=== PATIENT | male | born 1960 | race Caucasian/White ===

== ENCOUNTER 2016-08-31 12:35 | Emergency (ER) ==
[2016-08-31 12:56] VITALS: BP 109/69
[2016-08-31] MEDS ORDERED: XYLOCAINE 2% VISCOUS MT ONE (13:19)
[2016-08-31] MEDS ORDERED: ZOFRAN PO ONE (13:19)
[2016-08-31] MEDS ORDERED: MARCAINE 0.5% PF INJ ONE (13:19)
[2016-08-31] MEDS ORDERED: NORCO-7.5 PO ONE (13:19)
[2016-08-31] MEDS ORDERED: TYLENOL LIQUID PO ONE (13:19)
[2016-08-31] MEDS ORDERED: XYLOCAINE-MPF 1% INJ ONE (13:19)
[2016-08-31] MEDS ORDERED: BICILLIN L-A IM ONE (13:20)
--- NOTE | 2016-08-31 13:27 | PROVIDER DOCUMENTATION ---
HPI-EENT General - General Chief Complaint: Toothache Stated Complaint: TOOTHACHE Time Seen by Provider: 08/31/16 12:59 Source: patient Allergies/Adverse Reactions: Patient Allergies Allergy/AdvReac Type Severity Reaction Status Date / Time No Known Allergies Allergy Verified 08/31/16 13:09 Home Medications: Bisoprolol Fumarate/Hctz [Ziac 10-6.25 mg Tablet] 1 each PO DAILY 08/31/16 Lisinopril 40 mg PO DAILY 08/31/16 Prednisone 5 mg PO DAILY 08/31/16 - History of Present Illness-EENT General Nature of Presenting Problem: 55 y/o WM c/o R lower jaw pain, swelling x 1 day. Pt states tooth fracture about 2-3 weeks ago and now has swelling and pain at the tooth. States tried to get into see a dentist today, but couldn't find one that was open or could see him today. Denies any other sxs. Review of Systems - Adult - REVIEW OF SYSTEMS - ADULT Constitutional: reports: no symptoms reported. denies: chills, fever Eyes: reports: no symptoms reported. denies: blurred vision, double vision Ears, Nose, Mouth & Throat: reports: see HPI, mouth/dental pain. denies: ear pain, nose pain Cardiovascular: reports: no symptoms reported. denies: chest pain, palpitations Respiratory: reports: no symptoms reported. denies: dyspnea on exertion, shortness of breath Gastrointestinal: reports: no symptoms reported. denies: abdominal pain, nausea , vomiting Genitourinary: reports: no symptoms reported. denies: dysuria, frequency Musculoskeletal: reports: no symptoms reported. denies: joint pain, joint swelling Integumentary: reports: no symptoms reported. denies: nail changes, rash Neurological: reports: no symptoms reported. denies: numbness, paresthesia Psychiatric: reports: no symptoms reported Endocrine: reports: no symptoms reported. denies: cold intolerance, heat intolerance Hematologic/Lymphatic: reports: no symptoms reported. denies: easy bruising, prolonged bleeding Allergic/Immunologic: reports: no symptoms reported All Other Systems: Reviewed and Negative Past History - Adult - PAST MEDICAL HISTORY-ADULT Review of Records: reports: Nursing Assessment Review, Medications Reviewed Physical Exam- EENT - Physical Exam EENT Initial Vital Signs Reviewed: Yes General Appearance: alert, mild distress Eye Exam: bilateral eye: normal inspection Ear Exam: bilateral ear: auricle normal Eyes,Nose,Lips,Neck: 1 - swelling Nasal Exam: normal inspection Throat Exam: normal mouth inspection, dental tenderness. negative: tonsillar exudate, tonsillar swelling Mouth,Throat: 1 - tooth fx 2 - swelling, induration, redness Neck: supple, normal inspection, lymphadenopathy (mild, cervical) Respiratory: no respiratory distress Extremity: normal gait Integumentary: normal color, normal turgor, warm/dry Neurologic: negative: aphasia Psych/Mental Status: AL, normal mood/affect, normal thought content, normal thought process, oriented x 3 Progress - PLAN OF CARE/RESULTS Progress/Plan/Lab Results: Orders Category Date Time Status Acetaminophen Liquid [Tylenol Liquid] Med 08/31/16 13:19 Discontinued 650 mg PO NOW ONE Bupivacaine Pf 0.5% [Marcaine 0.5% Pf] Med 08/31/16 13:19 Discontinued 10 ml INJ NOW ONE Hydrocodone/APAP 7.5 mg/325 mg [[place]-7.5] Med 08/31/16 13:19 Discontinued 1 each PO NOW ONE Lidocaine 1% Pf [Xylocaine-Mpf 1%] Med 08/31/16 13:19 Discontinued 5 ml INJ NOW ONE Lidocaine 2% Viscous [Xylocaine 2% Viscous] Med 08/31/16 13:19 Discontinued 15 ml MT NOW ONE Ondansetron [Zofran] Med 08/31/16 13:19 Discontinued 4 mg PO NOW ONE Penicillin G Benzathine [Bicillin l-A] Med 08/31/16 13:20 Discontinued 1,200,000 unit IM NOW ONE Vital Signs Temp Pulse Resp BP Pulse Ox 08/31/16 12:54 98.6 F 109 H 18 109/69 100 No Known Allergies Allergy (Verified 08/31/16 13:09) Bisoprolol Fumarate/Hctz [Ziac 10-6.25 mg Tablet] 1 each PO DAILY 08/31/16 Clindamycin [Cleocin] 150 mg PO Q6HR #30 capsule 08/31/16 Lisinopril 40 mg PO DAILY 08/31/16 Prednisone 5 mg PO DAILY 08/31/16 Discussed f/u with dentist for further management. Procedures - ENT PROCEDURES Nerve Block: Mandibular, Dental Anesthetic: 0.5%, 1%, Lidocaine w/ Epinephrine, Bupivicaine/Marcaine Volume of Anesthetic (ml's): 6 Procedure Comment: Pt tolerated well Departure - Departure Time of Disposition Order: 13:21 DIAGNOSIS: Dental abscess Disposition: HOME 01 Certified Medical Emergency: Emergent Condition: Stable Additional Instructions: Take medications as directed. Follow up with dentist for further management. Return if symptoms get worse. ED Follow Up Instructions: You have been treated by a care provider in the Emergency Department. These instructions are being provided to you so you can have an understanding of how to care for yourself upon discharge. Upon discharge from the Emergency Department, you are responsible for making arrangements for follow-up care by a physician of your choice. Take all prescribed medications as directed. Return to the Emergency Department immediately for any new or worsening symptoms. You may call the Physician Referral phone number at [phone] to obtain a list of Physicians who are taking new patients. Prescriptions: Clindamycin [Cleocin] 150 mg PO Q6HR #30 capsule Referrals: Elva Moreira [Primary Care Provider] - Forms: Return to School/Parent Work Instructions: Dental Abscess Attestation - Physician/ Mid-level Attestation Patient care was provided by Mid-level provider (VENEER STOCK LAYER/PA):: Yes Mid-level provider:: Angela Byrd Mid-level documentation review:: The Mid-level provider documentation, treatment plan and medical decision making was reviewed by the physician who agrees with all treatment and medical decision making by the MLP.
== END 2016-08-31 13:53 | disposition home or self-care (01) ==
LOC: ED 12:35
DX: K04.7 Periapical abscess without sinus (principal); S02.5XXA Fracture of tooth (traumatic), initial encounter for closed fracture; R68.84 Jaw pain; R22.0 Localized swelling, mass and lump, head; Z79.899 Other long term (current) drug therapy
CPT/HCPCS: 96372; J0561; S0020

== ENCOUNTER 2018-12-16 20:24 | Inpatient (IN) ==
[2018-12-16] MEDS ORDERED: NS 1,000 ML IV ONE ×2 (20:56→23:41)
[2018-12-16] MEDS ORDERED: MORPHINE IV ONE (21:07)
[2018-12-16 21:31] LABS: BE -1.8 mmoll (-3.0-3.0); BLOOD TYPE ARTERIAL; HCO3-(ACT) 23.3 mmoll (20.0-26.0); METHB 1.2 % (0.0-1.5); O2(CT) 14.8 mL/dL (15.0-23.0); PCO2(98.6) 25 mmHg (35-45); PO2(98.6) 53 mmHg (60-100); SAMPLE BLOOD; SAO2 93.5 % (95.0-100.0); THB 11.8 g/dL (11.5-17.4); pH(98.6) 7.51 (7.35-7.45)
[2018-12-16 21:33] LABS: ALLEN TEST NO; MODALITY ROOM AIR; O2HB 89.3 % (95.0-99.0)
[2018-12-16 21:57] LABS: INR 1.14; PROTIME 15.2 Seconds (11.0-16.0)
[2018-12-16 21:58] LABS: PTT 43.8 Seconds (22.3-41.8)
--- NOTE | 2018-12-16 22:01 | EKG Report ---
Test Performed on : 12/16/2018 9:45:03 PM Test Reason : cp Blood Pressure : / mmHG Vent. Rate : 134 BPM Atrial Rate : 134 BPM P-R Int : 124 ms QRS Dur : 074 ms QT Int : 308 ms P-R-T Axes : 031 001 032 degrees QTc Int : 459 ms Sinus tachycardia. Otherwise normal ECG When compared with ECG of 12-JAN-2008 20:57, Questionable change in QRS axis Unconfirmed Result
[2018-12-16 22:04] LABS: AGAP 19; ALBUMIN 2.9 g/dL (3.5-5.0); ALKALINE PHOSPHATASE 106 U/L (32-122); BUN 31 mg/dL (8-22); CALCIUM 9.7 mg/dL (8.8-10.2); CHLORIDE 102 mmol/L (98-107); CK PROFILE 46 U/L (24-204); COSMO 288; CREATININE 1.2 mg/dL (0.7-1.2); ESTIMATED GFR > 60; GLUCOSE 142 mg/dL (70-104); GOT 72 U/L (10-34); GPT 45 U/L (10-44); POTASSIUM 4.6 mmol/L (3.5-5.1); SODIUM 140 mmol/L (136-145); TCO2 19 mmol/L (25-35); TOTAL PROTEIN 6.3 g/dL (6.3-8.3); UR AMPHETAMINES QUAL NONE DETECTED (NONE DETECT); UR BARBITUATES QUAL NONE DETECTED (NONE DETECT); UR BENZODIAZEPIN QUAL NONE DETECTED (NONE DETECT); UR CANNABINOIDS QUAL NONE DETECTED (NONE DETECT); UR COCAINE QUAL NONE DETECTED (NONE DETECT); UR METHADONE QUAL NONE DETECTED (NONE DETECT); UR METHAMPHETAMINE QUAL NONE DETECTED (NONE DETECT); UR OPIATES QUAL PRESUMPTIVE POSITIVE (NONE DETECT); UR OXYCODONE QUAL NONE DETECTED (NONE DETECT); UR PCP QUAL NONE DETECTED (NONE DETECT); UR PROPOXYPHENE QUAL NONE DETECTED (NONE DETECT); UR TCA QUAL PRESUMPTIVE POSITIVE (NONE DETECT)
[2018-12-16 22:06] LABS: URINE SOURCE VOIDED
[2018-12-16 22:08] LABS: BILIRUBIN URINE NEGATIVE (NEGATIVE); BLOOD URINE 1+ (NEGATIVE); CLARITY CLEAR (CLEAR); COLOR AMBER; GLUCOSE URINE NEGATIVE (NEGATIVE); KETONE URINE TRACE mg/dL (NEGATIVE)
--- NOTE | 2018-12-16 22:08 | PROVIDER DOCUMENTATION ---
HPI-General Adult - General Chief Complaint: Generalized Pain Stated Complaint: Gout all over body Time Seen by Provider: 12/16/18 20:44 Source: patient, family Allergies/Adverse Reactions: Patient Allergies Allergy/AdvReac Type Severity Reaction Status Date / Time No Known Allergies Allergy Verified 12/08/16 13:14 Home Medications: Home Medication List Medication Instructions Recorded Confirmed Last Taken Type Folic Acid 1 mg PO DAILY 12/08/16 12/16/18 12/08/16 History Alendronate [Fosamax] 70 mg PO DIRECTED 12/16/18 12/16/18 Unknown History Amitriptyline [Elavil] 75 mg PO DAILY 12/16/18 12/16/18 Unknown History Aspirin [Aspir-Low] 81 mg PO DAILY 12/16/18 12/16/18 Unknown History Bisoprolol/Hctz [Ziac 10/6.25 mg] 1 tab PO DAILY 12/16/18 12/16/18 Unknown History Calcium Carbonate/Vitamin D3 1 cap PO BID 12/16/18 12/16/18 Unknown History [Calcium 1,000 + D3 Caplet] Fenofibrate 160 mg PO DAILY 12/16/18 12/16/18 Unknown History Folic Acid 1 mg PO DAILY 12/16/18 12/16/18 Unknown History Hydrocodone/Acetaminophen [[place] 1 tab PO TID 12/16/18 12/16/18 Unknown History 10-325 Tablet] Infliximab [Remicade] 100 mg IV DIRECTED 12/16/18 12/16/18 Unknown History Lisinopril 40 mg PO DAILY 12/16/18 12/16/18 Unknown History Metformin [Glucophage] 1,000 mg PO DAILY 12/16/18 12/16/18 Unknown History Methotrexate Sodium [Methotrexate] 15 mg DIRECTED 12/16/18 12/16/18 Unknown History Prednisone 5 mg PO 4XDAY 12/16/18 12/16/18 Unknown History Pregabalin [Lyrica] 75 mg PO TID 12/16/18 12/16/18 Unknown History - History of Present Illness -Gen Adult Nature of Presenting Problems: reports that he has been in generalized pain for a few days now. and bed bound for a couple days which he could not move both hands and feet due to his pain. he says that he had a similar pain and went to [facility] a month ago and dx with gouty attack. enroute he was given fentanyl but not much improving of his pain. denied cp, sob. Review of Systems - Adult - REVIEW OF SYSTEMS - ADULT Constitutional: reports: no symptoms reported Eyes: reports: no symptoms reported Ears, Nose, Mouth & Throat: reports: no symptoms reported Cardiovascular: reports: no symptoms reported Respiratory: reports: no symptoms reported Gastrointestinal: reports: no symptoms reported Genitourinary: reports: no symptoms reported Musculoskeletal: reports: no symptoms reported Integumentary: reports: no symptoms reported Neurological: reports: no symptoms reported Psychiatric: reports: no symptoms reported Endocrine: reports: no symptoms reported Hematologic/Lymphatic: reports: no symptoms reported Allergic/Immunologic: reports: no symptoms reported All Other Systems: Reviewed and Negative Past History - Adult - PAST MEDICAL HISTORY-ADULT Review of Records: reports: Old Records Reviewed, Nursing Assessment Review, Medications Reviewed, Social history reviewed & non-contributory. Major Childhood Illnesses: reports: denies history Cardiovascular: reports: HTN, hyperlipidemia Respiratory: reports: denies history Gastrointestinal: reports: GERD Obstetrical/Gynecological: reports: denies history Genitourinary: reports: denies history Musculoskeletal: reports: arthritis (rheumatoid), chronic pain Neurological: reports: denies history Endocrine/Immune: reports: denies history Other Conditions: reports: denies history - PRIOR SURGERIES/PROCEDURES Surgical/Procedure History: reports: reviewed, not pertinent - IMMUNIZATION STATUS Childhood Immunizations: See Nurse Assessment Flu Vaccine: See Nurse Assessment - FAMILY HISTORY Family History: reviewed, not pertinent - SOCIAL HISTORY Smoking: denies Substance Use: none/never Alcohol Use Frequency: never Living Situation: family Physical Exam-General - PHYSICAL EXAM-ADULT Initial Vital Signs Reviewed: Yes - CONSTITUTIONAL General Appearance: alert, other (not able to move and follow up command. hyperv entilating.) - EYES Eyes: other (eyes discharge with yellow) - HEAD, EARS, NOSE, MOUTH & THROAT HENMT: normocephalic/atraumatic, other (move head) - NECK Neck: non-tender, full range of motion. negative: C-spine tenderness - RESPIRATORY Respiratory: chest non-tender, lungs clear, normal breath sounds - CARDIOVASCULAR Cardiovascular: normal peripheral pulses, tachycardia - GASTROINTESTINAL (ABDOMEN) Abdominal Exam: normal bowel sounds, non tender, soft - MUSCULOSKELETAL Extremity: other (distall motor intact (wiggle toes)) - SKIN Integumentary: warm (and sweating) - NEUROLOGIC Neurologic: grossly normal, no motor/sensory deficits - PSYCHIATRIC Psych/Mental Status: normal thought content, normal thought process, oriented x 3 Progress - PLAN OF CARE/RESULTS Progress/Plan/Lab Results: Vital Signs - 8 hr 12/16/18 20:25 Temperature 97.2 F L Pulse Rate 137 H Respiratory Rate 20 Blood Pressure 127/74 O2 Sat by Pulse Oximetry 98 Laboratory Results - last 24 hr 12/16/18 12/16/18 12/16/18 21:17 21:23 21:26 PT INR PTT (Actin FS) Specimen Type ARTERIAL Sample Site R BRACHIAL pH 7.51 H pCO2 25 L pO2 53 L HCO3 23.3 Base Excess -1.8 Oxyhemoglobin 89.3 L* ABG O2 Sat (Calculated) 14.8 L ABG O2 Saturation 93.5 L ABG Carboxyhemoglobin 3.20 H ABG Methemoglobin 1.2 [place] Test NO A-a O2 Difference 65.0 Total Hemoglobin 11.8 Lactate 1.70 Blood Gas Modality ROOM AIR FiO2 % 21.0 Sodium 140 Potassium 4.6 Chloride 102 Carbon Dioxide 19 L Anion Gap 19 BUN 31 H Creatinine 1.2 Estimated GFR/1.73 m2 > 60 BUN/Creatinine Ratio 26 Glucose 142 H POC Glucose 157 H Calculated Osmolality 288 Calcium 9.7 Total Bilirubin 0.60 AST 72 H ALT 45 H Alkaline Phosphatase 106 Creatine Kinase 46 Troponin T Total Protein 6.3 Albumin 2.9 L Globulin 3.0 Albumin/Globulin Ratio 1.0 Plasma Lactate Urine Source Urine Color Urine Turbidity Urine pH Ur Specific [place] Urine Protein Ur Glucose (Stick) Ur Ketones (Stick) Urine Blood Urine Nitrite Urine Bilirubin Urobilinogen Dipstick Urine Leukocytes Urine WBC (Auto) Urine RBC (Auto) U Epithel Cells (Auto) Urine Bacteria (Auto) Urine Opiates Screen Ur Oxycodone Screen Urine Methadone Screen U Propoxyphene Qual Ur Barbituates Screen Ur Tricyclics Screen Ur Phencyclidine Scrn Ur Amphetamines Screen U Methamphetamines Scrn U Benzodiazepines Scrn Urine Cocaine Screen U Cannabinoids Screen 12/16/18 12/16/18 12/16/18 21:26 21:26 21:26 PT 15.2 INR 1.14 PTT (Actin FS) 43.8 H Specimen Type Sample Site pH pCO2 pO2 HCO3 Base Excess Oxyhemoglobin ABG O2 Sat (Calculated) ABG O2 Saturation ABG Carboxyhemoglobin ABG Methemoglobin [place] Test A-a O2 Difference Total Hemoglobin Lactate Blood Gas Modality FiO2 % Sodium Potassium Chloride Carbon Dioxide Anion Gap BUN Creatinine Estimated GFR/1.73 m2 BUN/Creatinine Ratio Glucose POC Glucose Calculated Osmolality Calcium Total Bilirubin AST ALT Alkaline Phosphatase Creatine Kinase Troponin T < 0.010 Total Protein Albumin Globulin Albumin/Globulin Ratio Plasma Lactate 1.9 Urine Source Urine Color Urine Turbidity Urine pH Ur Specific [place] Urine Protein Ur Glucose (Stick) Ur Ketones (Stick) Urine Blood Urine Nitrite Urine Bilirubin Urobilinogen Dipstick Urine Leukocytes Urine WBC (Auto) Urine RBC (Auto) U Epithel Cells (Auto) Urine Bacteria (Auto) Urine Opiates Screen Ur Oxycodone Screen Urine Methadone Screen U Propoxyphene Qual Ur Barbituates Screen Ur Tricyclics Screen Ur Phencyclidine Scrn Ur Amphetamines Screen U Methamphetamines Scrn U Benzodiazepines Scrn Urine Cocaine Screen U Cannabinoids Screen 12/16/18 12/16/18 21:26 21:26 PT INR PTT (Actin FS) Specimen Type Sample Site pH pCO2 pO2 HCO3 Base Excess Oxyhemoglobin ABG O2 Sat (Calculated) ABG O2 Saturation ABG Carboxyhemoglobin ABG Methemoglobin [place] Test A-a O2 Difference Total Hemoglobin Lactate Blood Gas Modality FiO2 % Sodium Potassium Chloride Carbon Dioxide Anion Gap BUN Creatinine Estimated GFR/1.73 m2 BUN/Creatinine Ratio Glucose POC Glucose Calculated Osmolality Calcium Total Bilirubin AST ALT Alkaline Phosphatase Creatine Kinase Troponin T Total Protein Albumin Globulin Albumin/Globulin Ratio Plasma Lactate Urine Source Cancelled Urine Color Cancelled Urine Turbidity Cancelled Urine pH Cancelled Ur Specific [place] Cancelled Urine Protein Cancelled Ur Glucose (Stick) Cancelled Ur Ketones (Stick) Cancelled Urine Blood Cancelled Urine Nitrite Cancelled Urine Bilirubin Cancelled Urobilinogen Dipstick Cancelled Urine Leukocytes Cancelled Urine WBC (Auto) Cancelled Urine RBC (Auto) Cancelled U Epithel Cells (Auto) Cancelled Urine Bacteria (Auto) Cancelled Urine Opiates Screen PRESUMPTIVE POSITIVE A Ur Oxycodone Screen NONE DETECTED Urine Methadone Screen NONE DETECTED U Propoxyphene Qual NONE DETECTED Ur Barbituates Screen NONE DETECTED Ur Tricyclics Screen PRESUMPTIVE POSITIVE A Ur Phencyclidine Scrn NONE DETECTED Ur Amphetamines Screen NONE DETECTED U Methamphetamines Scrn NONE DETECTED U Benzodiazepines Scrn NONE DETECTED Urine Cocaine Screen NONE DETECTED U Cannabinoids Screen NONE DETECTED Orders Category Date Time Status Cardiac Monitoring DIRECTED Care 12/16/18 20:52 Active Finger Stick Blood Sugar (ED) DIRECTED Care 12/16/18 20:52 Active Oxygen Therapy- ED Nursing DIRECTED Care 12/16/18 20:52 Active Saline Loc NOW Care 12/16/18 20:52 Active HAND COMPLETE LEFT [RAD] Stat Exams 12/16/18 20:52 Ordered HAND COMPLETE RIGHT [RAD] Stat Exams 12/16/18 20:52 Ordered ABG [RESP] Routine Lab 12/16/18 21:17 Completed BLOOD CULTURE [BLDCUL] Stat Lab 12/16/18 21:30 Ordered CBC WITH ELECTRONIC DIFF [HEME] Stat Lab 12/16/18 21:26 Results CK PROFILE [SP CHEM] Stat Lab 12/16/18 21:26 Completed COMPREHENSIVE METABOLIC PANEL [CHEM] Stat Lab 12/16/18 21:[address] Stat Lab 12/16/18 21:45 Received Ketone [ACETONE SERUM] [CHEM] Stat Lab 12/16/18 22:05 Ordered LACTATE, PLASMA [CHEM] Stat Lab 12/16/18 21:26 Completed PROTIME WITH INR [COAG] Stat Lab 12/16/18 21:26 Completed PTT [COAG] Stat Lab 12/16/18 21:26 Completed TROPONIN T Stat Lab 12/16/18 21:[address] [URINALYSIS] Stat Lab 12/16/18 21:26 Results URINE DRUG SCREEN PL Stat Lab 12/16/18 21:26 Completed 0.9% Sodium Chloride Inj [Ns] 1,000 ml Med 12/16/18 20:56 Discontinued IV 999 mls/hr Morphine Med 12/16/18 21:07 Discontinued 4 mg IV NOW ONE Altered Mental Status Stat Oth 12/16/18 20:52 Ordered EKG [EKG] Stat Ther 12/16/18 20:52 Draft Result Diagrams: 12/16/18 21:26 12/16/18 21:26 - EKG 1 Time of EKG reading by physician:: 21:45 EKG Read and Signed by:: Ivana Sarabia EKG Interpretation (*Must complete 3 of following elements*): Abnormal Rate: 134 Rhythm: ST [place]: normal QRS: normal [place] Interval: normal ST Wave: normal - CONSULTS/PCP/HOSPITALIST Notification #1 *Consult/PCP/Hospitalist*: dr. Casillas Departure - Departure Date of Disposition Decision: 12/16/18 Time of Disposition Decision: 23:42 DIAGNOSIS: Sepsis, Gout attack Disposition: ADMITTED INPATIENT 09 Certified Medical Emergency: Emergent Condition: Stable Referrals and Follow-Ups: Isaias Godfrey [Primary Care Provider] - - Critical Care Note This patient required my direct & personal management of CC.: No Attestation - Physician/ MARINO Attestation The physician spent face to face time with patient:: Yes Advanced Practice Provider documentation review:: Supervising physician onsite and consulted in the evaluation and care of this patient. The physician did have a face to face encounter with the patient.
[2018-12-16 22:09] LABS: LEUKOCYTES URINE 1+ (NEGATIVE); NITRITE URINE POSITIVE (NEGATIVE); PROTEIN URINE 1+(30 mg/dL) mg/dL (NEGATIVE); UROBILINOGEN URINE 1 mg/dL
[2018-12-16 22:10] LABS: URINE EPITHELIAL CELLS <10 /HPF (<10); URINE RBC <10 /HPF (<10)
[2018-12-16 22:11] LABS: BASO# 0.04 X1000 (0.0-0.2); BASO% 0.2 % (0.0-0.8); EOS# 0.08 X1000 (0.0-0.7); EOS% 0.4 % (0.0-10.0); HEMOGLOBIN 11.3 g/dL (14.0-18.0); IMM GRAN% 0.5 % (0.0-0.5); LYMPH# 2.29 X1000 (1.2-3.4); LYMPH% 10.9 % (20.5-51.1); MCH 30.2 PG (27-31); MCHC 32.3 g/dL (33-37); MCV 93.6 FL (81-99); MONO# 1.79 X1000 (0.11-0.59); MONO% 8.5 % (1.7-9.3); MPV 10.2 FL (7.4-10.4); NEUT# 16.74 X1000 (1.4-6.5); NEUT% 79.5 % (42.2-75.2); PLT 595 X1000 (130-400); RBC 3.74 XMIL (4.7-6.1); RDW 15.4 % (11.5-14.5); URINE BACTERIA 3+ /HFP; URINE CAST GRANULAR PRESENT /LPF; URINE CRYSTAL NONE SEEN /HPF; URINE YEAST NONE SEEN /HPF; WBC 21.04 X1000 (4.8-10.8)
[2018-12-16 22:23] LABS: BANDS 1 % (0-1); LYMPHS 10 % (21-51); MONO 5 % (1-9); SEGS 84 % (42-75)
[2018-12-16 22:26] LABS: INFLUENZA A NEGATIVE (NEGATIVE); INFLUENZA B NEGATIVE (NEGATIVE)
[2018-12-16] MEDS ORDERED: VANCOMYCIN 1 GM/NS 1 GM/250 ML IVPB IV ONE (22:57)
[2018-12-16] MEDS ORDERED: DECADRON IV ONE (23:11)
[2018-12-16] MEDS: NS 1,000 ML IV SCH (23:40)
[2018-12-16] MEDS: ZOSYN 3.375 GM in NS 50 ML IV SCH (23:41)
[2018-12-17 04:49] LABS: BILIRUBIN URINE NEGATIVE (NEGATIVE); BLOOD URINE 1+ (NEGATIVE); GLUCOSE URINE NEGATIVE (NEGATIVE); KETONE URINE TRACE mg/dL (NEGATIVE); LEUKOCYTES URINE NEGATIVE (NEGATIVE); NITRITE URINE NEGATIVE (NEGATIVE); PROTEIN URINE 1+(30 mg/dL) mg/dL (NEGATIVE); UROBILINOGEN URINE NORMAL
[2018-12-17 04:58] LABS: URINE BACTERIA 4+ /HFP; URINE EPITHELIAL CELLS <10 /HPF (<10); URINE RBC <10 /HPF (<10); URINE WBC <10 /HPF (<10)
[2018-12-17 04:59] LABS: COLOR DARK YELLOW; URINE SOURCE CATH
[2018-12-17 05:00] LABS: CLARITY VERY CLOUDY (CLEAR)
[2018-12-17] MEDS: ZOSYN 3.375 GM in NS 50 ML IV SCH ×4 (06:00→23:37)
--- NOTE | 2018-12-17 08:07 | Diag Imaging Result Doc PS360 ---
HAND COMPLETE RIGHT - 12/16/2018 INDICATION: gout/infection TECHNIQUE: Three views COMPARISON: None FINDINGS: The patient would not position his hand. The exam is nondiagnostic. IMPRESSION: Nondiagnostic exam. Electronically signed by Lukasz Sarmiento 12/17/2018 8:05 AM
--- NOTE | 2018-12-17 08:10 | Diag Imaging Result Doc PS360 ---
HAND COMPLETE LEFT - 12/16/2018 INDICATION: gout/infection TECHNIQUE: Three views COMPARISON: None FINDINGS: The patient would not position his hand. Exam is nondiagnostic. No obvious abnormality. IMPRESSION: Nondiagnostic exam. Electronically signed by Lukasz Sarmiento 12/17/2018 8:08 AM
[2018-12-17] MEDS ORDERED: OFIRMEV 1000 MG/ISOTONIC SOLN 1,000 MG/100 ML BOTTLE IV PRN (09:08)
[2018-12-17] MEDS ORDERED: VANCOMYCIN IV PER PHARMACY MISC SCH (09:15)
[2018-12-17] MEDS: NICODERM PATCH TD SCH (09:34)
[2018-12-17] MEDS: NS 1,000 ML IV SCH ×2 (09:34→16:38)
[2018-12-17] MEDS: PROTONIX IV SCH ×2 (09:34→22:21)
[2018-12-17] MEDS: TORADOL IV SCH ×3 (09:34→22:21)
[2018-12-17] MEDS: SODIUM CHLORIDE 0.9% INJ SCH (09:34)
[2018-12-17] MEDS ORDERED: VANCOMYCIN 1 GM/NS 1 GM/250 ML IVPB IV ONE (09:45)
[2018-12-17] MEDS ORDERED: TRICOR PO SCH (10:45)
[2018-12-17] MEDS ORDERED: PRINIVIL PO SCH (10:45)
[2018-12-17] MEDS ORDERED: GLUCOPHAGE PO SCH (10:45)
[2018-12-17] MEDS ORDERED: ZIAC 10/6.25 MG PO SCH (10:45)
[2018-12-17] MEDS ORDERED: ELAVIL PO SCH (10:45)
--- NOTE | 2018-12-17 11:32 | HISTORY AND PHYSICAL ---
PRIMARY CARE PHYSICIAN: Dr. Isaias Godfrey MD. CHIEF COMPLAINT: Generalized pain all over. HISTORY OF PRESENTING ILLNESS: This is a 58-year-old male who presents to [facility] ER with complaints of generalized pain for the past several days that has progressively worsened. States he had become bed-bound for the past 2 days because he could not move both of his hands and feet due to the pain. States he has had a similar episode of this approximately 1 month ago when he was at [facility] and diagnosed with a gouty attack. He arrived via EMS and while en route, they did give it male but patient stated there was not much improvement in his pain. Workup in the emergency room showed a white blood cell count of 21.04. His uric acid level was 7.1. His urinalysis showed on the 1st specimen positive nitrites, 1+ white blood cells and 3+ bacteria. Repeat about 5 hours later showed negative nitrites, negative white blood cells, but 4+ bacteria. His acetone level was negative. They attempted to do x-rays of his bilateral hands, but he was unable to cooperate with the x-ray and it was a nondiagnostic exam for his bilateral hands. He was admitted to the intensive care unit for further evaluation and treatment. PAST MEDICAL HISTORY: Rheumatoid arthritis, hypertension, hyperlipidemia, GERD, chronic pain, and a recent gouty attack. PAST SURGICAL HISTORY: None. FAMILY HISTORY: Reviewed and noncontributory. SOCIAL HISTORY: Currently lives with family. Denies any tobacco, alcohol or illicit drug use. ALLERGIES: He has no known drug allergies. HOME MEDICATIONS: 1. Fosamax 70 mg p.o. as directed. 2. Elavil 75 mg p.o. daily. 3. Aspirin 81 mg p.o. daily. 4. Ziac 10/6.25 one p.o. daily. 5. Calcium with vitamin D p.o. b.i.d. 6. Fenofibrate 160 mg p.o. daily. 7. Folic acid 1 mg p.o. daily. 8. [place] 10 one p.o. t.i.d. 9. Remicade 100 mg IV as directed will be held. 10. Lisinopril 40 mg p.o. daily. 11. Metformin 1000 mg p.o. daily. 12. Methotrexate 15 mg as directed. 13. Prednisone 5 mg p.o. 4 times daily, and we will hold those as we are going to give IV Solu- Medrol. 14. Lyrica 75 mg p.o. t.i.d. LABORATORY DATA: White blood cell count of 21.04, hemoglobin 11.3, hematocrit 35, platelets 595,000. PT and INR of 15.2 and 1.14 with a PTT of 43.8. ABG showed a pH of 7.51, pCO2 25, PO2 53, bicarb 23.3. This was on room air. Sodium of 140, potassium 4.6, chloride 102, CO2 19, BUN of 31, creatinine 1.2, glucose 142. Uric acid 7.1, AST of 72, ALT 45. Cardiac enzyme was negative. Plasma lactate of 1.9. Initial UA showed positive nitrites, 1+ white blood cells, 3+ bacteria. Repeat UA approximately 4 hours later showed negative nitrites, negative white blood cells, 4+ bacteria. Urine drug screen was presumptive positive for opiates and tricyclics. Acetone level was negative. Influenza A and B were both negative. IMAGING: X-ray of left hand showed the patient would not position his hand and then became a nondiagnostic exam. X-ray of right hand, the patient would not position his hand, the exam was nondiagnostic. EKG showed sinus tachycardia at 134. REVIEW OF SYSTEMS: Positive for generalized pain to bilateral hands and feet. Denied any blurred vision, dizziness, chest pain, coughing, shortness of breath. Denied any abdominal pain, constipation, diarrhea, burning or hurting with urination. PHYSICAL EXAMINATION: VITAL SIGNS: On arrival, had a temperature of 97.2 degrees, pulse is 137, respirations 20, blood pressure 127/74, saturating 98% on room air. Currently heart rate is down at 102. GENERAL: This is a 58-year-old male who is lying in the bed, resting quietly. HEENT: Normocephalic, atraumatic. Normal ENT inspection. Oropharynx and nares are clear. Pupils are equal, round, reactive to light and accommodation. Extraocular movements are intact. NECK: Normal inspection, normal range of motion. LUNGS: Clear to auscultation bilaterally with equal lung expansion and chest wall movement. HEART: Regular rate and rhythm. No murmurs, rubs, or gallops. ABDOMEN: Soft, nontender, nondistended. Bowel sounds are present x4 quadrants. MUSCULOSKELETAL: He is noted to have erythema and edema, unable to move bilateral hands to each knuckle. Also noted to have some erythema and edema, tenderness to touch on both sides of his wrist bilaterally. NEUROLOGICAL: The cranial nerves 2-12 are grossly intact. ASSESSMENT: 1. septic arthritis versus a gouty arthritis. 2. Leukocytosis. 3. Hypertension. 4. Rheumatoid arthritis. 5. Chronic pain. PLAN: He was admitted to the intensive care unit. Placed on a regular diet. Placed on Toradol 30 mg IV q.6, normal saline at 125 mL an hour, Tylenol 100 mg IV q.6 hours p.r.n., Protonix 40 mg IV q.12, vancomycin per pharmacy protocol, Zosyn 3.375 g IV q.6. We will continue his home medications as previously identified. Placed on Solu-Medrol 40 mg IV q.8 and wean as he improves. Recheck a CBC, BMP in the a.m. Urine culture is pending. Dictated by FERNANDO Headley for Goldy Castañeda MD Addendum: Patient seen and examined by myself. Agree with FERNANDO note. It reflects my assessment and plan. Patient is being admitted for what it looks like septic arthritis in both hands in metacarpophalangeal joints. I do not think we can aspirate anything from there. Because of history of gout it could be gouty attack although the fact that is affecting 6 MCPs is not frequently seen. Will start broad spectrum antibiotics in this case Vancomycin and Zosyn and monitor CBC daily. At admission it was greater than 20 000. Patient also has UTI. Urine culture is pending. cc: FERNANDO Headley MD Neil Yeager, MD [facility] HOSPITALRegina
[2018-12-17] MEDS: CALTRATE 600 + D PO SCH ×2 (12:13→20:20)
[2018-12-17] MEDS: ASPIRIN EC PO SCH (12:13)
[2018-12-17] MEDS: FOLIC ACID PO SCH (12:14)
[2018-12-17] MEDS: ZIAC 5/6.25 MG PO SCH (12:15)
[2018-12-17] MEDS: ZEBETA PO SCH (12:15)
[2018-12-17] MEDS: SOLU-MEDROL IV SCH ×2 (12:17→20:19)
[2018-12-17] MEDS: LYRICA PO SCH ×2 (12:57→20:20)
[2018-12-17] MEDS: NORCO-10 PO SCH ×2 (12:58→20:19)
[2018-12-17] MEDS ORDERED: NS 1,000 ML IV ONE (18:48)
[2018-12-17] MEDS: HUMALOG (PARKWAY) SUBQ SCH (20:25)
[2018-12-17] MEDS ORDERED: VANCOMYCIN 1,700 MG in NS 250 ML IV SCH (22:00)
[2018-12-18] MEDS: NS 1,000 ML IV SCH ×3 (00:51→20:31)
[2018-12-18] MEDS: SOLU-MEDROL IV SCH ×3 (05:26→20:29)
[2018-12-18] MEDS: NORCO-10 PO SCH ×3 (05:26→20:30)
[2018-12-18] MEDS: ZOSYN 3.375 GM in NS 50 ML IV SCH ×5 (05:27→23:34)
[2018-12-18] MEDS: TORADOL IV SCH (05:27)
[2018-12-18] MEDS: LYRICA PO SCH ×3 (05:27→20:30)
[2018-12-18 06:08] LABS: BASO# 0.01 X1000 (0.0-0.2); BASO% 0.1 % (0.0-0.8); EOS# 0.01 X1000 (0.0-0.7); EOS% 0.1 % (0.0-10.0); HEMATOCRIT 28.3 % (42.0-52.0); HEMOGLOBIN 9.1 g/dL (14.0-18.0); IMM GRAN% 0.6 % (0.0-0.5); LYMPH# 1.27 X1000 (1.2-3.4); LYMPH% 7.8 % (20.5-51.1); MCH 30.1 PG (27-31); MCHC 32.2 g/dL (33-37); MCV 93.7 FL (81-99); MONO# 0.57 X1000 (0.11-0.59); MONO% 3.5 % (1.7-9.3); MPV 10.9 FL (7.4-10.4); NEUT# 14.27 X1000 (1.4-6.5); NEUT% 87.9 % (42.2-75.2); PLT 538 X1000 (130-400); RBC 3.02 XMIL (4.7-6.1); WBC 16.23 X1000 (4.8-10.8)
[2018-12-18] MEDS: HUMALOG (PARKWAY) SUBQ SCH ×4 (06:18→20:30)
[2018-12-18 06:26] LABS: CALCIUM 7.9 mg/dL (8.8-10.2); CREATININE 1.6 mg/dL (0.7-1.2); POTASSIUM 3.8 mmol/L (3.5-5.1)
[2018-12-18 07:39] LABS: LYMPHS 7 % (21-51); MONO 3 % (1-9); SEGS 90 % (42-75)
[2018-12-18] MEDS ORDERED: OFIRMEV 1000 MG/ISOTONIC SOLN 1,000 MG/100 ML BOTTLE IV SCH (08:00)
[2018-12-18] MEDS: ASPIRIN EC PO SCH (08:49)
[2018-12-18] MEDS: CALTRATE 600 + D PO SCH ×2 (08:49→20:30)
[2018-12-18] MEDS: ZYVOX 600 MG/D5W 600 MG/300 ML IVPB IV SCH ×2 (08:50→20:32)
[2018-12-18] MEDS: ZIAC 5/6.25 MG PO SCH (08:50)
[2018-12-18] MEDS: TRICOR PO SCH (08:50)
[2018-12-18] MEDS: NORVASC PO SCH ×2 (08:50→20:30)
[2018-12-18] MEDS: ZEBETA PO SCH (08:50)
[2018-12-18] MEDS: NICODERM PATCH TD SCH (08:50)
[2018-12-18] MEDS: FOLIC ACID PO SCH (09:52)
--- NOTE | 2018-12-18 10:01 | PROGRESS NOTE ---
DATE: 12/18/2018 SUBJECTIVE: The patient reports feeling much better. He is more awake today. Less pain in MCPs of both hands. OBJECTIVE: Vital Signs: Temperature 96.8 degrees, heart rate 89, respiratory rate 21, blood pressure 142/85, O2 saturation 96% on 2 L nasal cannula. General: This is a 58-year-old male, lying in bed in no acute distress. Cardiovascular: S1, S2 heard. No murmurs, gallops, or rubs. Regular rate and rhythm. Respiratory: Clear bilaterally to auscultation. No work of breathing or using accessory muscles. Abdomen: Soft, nontender to palpation. Bowel sounds present. No organomegaly. Extremities: The patient has erythema and edema in both hands, actually in the MCPs in both hands. Those are definitely better in comparing with admission. Neurological: The patient is alert and oriented x3. Moves 4 extremities. LABORATORY DATA: White cell count 16.23, hemoglobin 9.1, hematocrit 28.3, platelets 538,000. BMP shows creatinine 1.6, glucose 226, calcium 7.9. ASSESSMENT AND PLAN: 1. Gouty attack in both hands. I think this patient has gout that was diagnosed a few months ago. Actually, the patient reports that he had a biopsy of elbow cartilage done a few months back that they confirmed this crystal deposition. The patient has been started on allopurinol, and since then he has been doing okay. Currently, the patient reports that he is on allopurinol, so we are going to confirm with the patient, the doses, and we are going to restart the medication today. The patient has been started on antibiotics that are going to be continue because we are suspecting urinary tract infection. 2. Urinary tract infection. Actually, the patient's urine culture is not available yet. At this point, will continue with the same antibiotic coverage until we have the final result of that exam, and then will tailor antibiotic treatment appropriately. 3. Rheumatoid arthritis. Actually, this condition has been ruled out by his hand former. Biopsy of cartilage on the right elbow 1 to 2 months ago revealed crystal deposition instead of changes related to rheumatoid arthritis, so he is not on any on Remicade or methotrexate or any chronic steroids, like prednisone. 4. Disposition. I think, at this point, the patient can be moved out of the intensive care unit today. cc: Goldy Castañeda MD [facility]
[2018-12-18] MEDS: PROTONIX IV SCH ×2 (10:57→22:30)
[2018-12-18] MEDS ORDERED: TYLENOL PO PRN (12:55)
[2018-12-18] MEDS ORDERED: PNEUMOVAX 23 IM ONE (20:15)
[2018-12-19] MEDS: LYRICA PO SCH ×3 (05:27→20:27)
[2018-12-19] MEDS: SOLU-MEDROL IV SCH ×3 (05:27→20:26)
[2018-12-19] MEDS: NORCO-10 PO SCH ×3 (05:27→20:27)
[2018-12-19] MEDS: ZOSYN 3.375 GM in NS 50 ML IV SCH (05:27)
[2018-12-19] MEDS: HUMALOG (PARKWAY) SUBQ SCH ×4 (06:24→20:27)
[2018-12-19 07:50] LABS: BASO# 0.01 X1000 (0.0-0.2); BASO% 0.1 % (0.0-0.8); HEMATOCRIT 28.8 % (42.0-52.0); HEMOGLOBIN 9.1 g/dL (14.0-18.0); IMM GRAN# 0.12 X1000 (0.0-0.04); IMM GRAN% 0.7 % (0.0-0.5); LYMPH# 1.21 X1000 (1.2-3.4); LYMPH% 6.9 % (20.5-51.1); MCH 29.4 PG (27-31); MCHC 31.6 g/dL (33-37); MCV 93.2 FL (81-99); MONO# 0.54 X1000 (0.11-0.59); MONO% 3.1 % (1.7-9.3); MPV 10.9 FL (7.4-10.4); NEUT# 15.72 X1000 (1.4-6.5); NEUT% 89.2 % (42.2-75.2); RBC 3.09 XMIL (4.7-6.1); RDW 15.1 % (11.5-14.5)
[2018-12-19 07:59] LABS: CALCIUM 7.3 mg/dL (8.8-10.2); CREATININE 1.9 mg/dL (0.7-1.2)
[2018-12-19] MEDS: NS 1,000 ML IV SCH (08:34)
[2018-12-19] MEDS: TRICOR PO SCH (09:32)
[2018-12-19] MEDS: PROTONIX IV SCH ×2 (09:32→22:16)
[2018-12-19] MEDS: FOLIC ACID PO SCH (09:32)
[2018-12-19] MEDS: ZEBETA PO SCH (09:32)
[2018-12-19] MEDS: ASPIRIN EC PO SCH (09:32)
[2018-12-19] MEDS: ZYLOPRIM PO SCH ×2 (09:32→20:27)
[2018-12-19] MEDS: SODIUM CHLORIDE 0.9% INJ SCH (09:32)
[2018-12-19] MEDS: NICODERM PATCH TD SCH (09:32)
[2018-12-19] MEDS: NORVASC PO SCH ×2 (09:32→20:27)
[2018-12-19] MEDS: CALTRATE 600 + D PO SCH ×2 (09:32→20:27)
[2018-12-19] MEDS: ZIAC 5/6.25 MG PO SCH (09:33)
[2018-12-19 09:48] LABS: LYMPHS 4 % (21-51); MONO 1 % (1-9); SEGS 95 % (42-75)
[2018-12-19 09:49] LABS: PLT 659 X1000 (130-400)
[2018-12-19] MEDS ORDERED: LASIX IV ONE (10:02)
--- NOTE | 2018-12-19 10:25 | PROGRESS NOTE ---
DATE: 12/19/2018 SUBJECTIVE: Patient reports still hurting in both hands/knuckles. Pain is better but is still there. OBJECTIVE: Vital Signs: Temperature 97.4 degrees, heart rate 67, respiratory rate 22, blood pressure 117/66, O2 saturation 97% on room air. General: This is a 58-year-old male lying in bed in no acute distress. Cardiovascular: S1, S2 heard. No murmurs, gallops, or rubs. Regular rate and rhythm. Respiratory: Clear bilaterally to auscultation. No work of breathing or using accessory muscles. Abdomen: Soft. Nontender to palpation. Bowel sounds present. No organomegaly. Extremity: There is still edema in both hands, specifically MCP 2, 3 and 4 in both hands. Redness is better but there is more swelling in comparing with the last 2 days. Neurological: Patient is alert and oriented x3. Moves 4 extremities. LABORATORY DATA: White cell count 17.63, hemoglobin 9.1, hematocrit 28.8, platelets 695,000. Creatinine 1.9. ASSESSMENT/PLAN: 1. Gouty attack. Clinically, this patient is getting slowly better. Currently, he is on Solu- Medrol 40 mg IV q.8 hours. Because of the acute kidney injury, we can continue with this medication only. Toradol has been discontinued 2 days ago. The patient has been restarted on home medications. In this case, allopurinol. We will continue with the same management. Antibiotics has been discontinued because the blood culture and urine culture are negative. 2. Urinary tract infection has been ruled out, so antibiotics have been stopped. 3. Acute kidney injury. Kidney function on admission was normal but was getting worse progressively, so we have stopped nephrotoxic medications like, for example, lisinopril and also Toradol. Patient is receiving IV steroids for gout attack. We will continue to monitor renal function closely. 4. Disposition. We will continue to monitor this patient closely. We will consider discharging this patient once renal function has stabilized. cc: Goldy Castañeda MD
[2018-12-20] MEDS: SOLU-MEDROL IV SCH ×2 (03:05→20:22)
[2018-12-20] MEDS: LYRICA PO SCH ×3 (06:05→20:20)
[2018-12-20] MEDS: NORCO-10 PO SCH ×3 (06:05→20:20)
[2018-12-20] MEDS: HUMALOG (PARKWAY) SUBQ SCH ×4 (06:45→22:25)
[2018-12-20] MEDS ORDERED: SODIUM CHLORIDE 0.9% 10 ML ONE (07:15)
[2018-12-20 07:39] LABS: BASO# 0.01 X1000 (0.0-0.2); BASO% 0.1 % (0.0-0.8); EOS# 0.04 X1000 (0.0-0.7); EOS% 0.2 % (0.0-10.0); HEMATOCRIT 32.3 % (42.0-52.0); HEMOGLOBIN 10.3 g/dL (14.0-18.0); IMM GRAN# 0.25 X1000 (0.0-0.04); IMM GRAN% 1.4 % (0.0-0.5); LYMPH# 3.37 X1000 (1.2-3.4); LYMPH% 18.5 % (20.5-51.1); MCH 29.6 PG (27-31); MCHC 31.9 g/dL (33-37); MCV 92.8 FL (81-99); MONO# 0.93 X1000 (0.11-0.59); MONO% 5.1 % (1.7-9.3); MPV 10.5 FL (7.4-10.4); NEUT% 74.7 % (42.2-75.2); RBC 3.48 XMIL (4.7-6.1)
[2018-12-20 07:59] LABS: LYMPHS 34 % (21-51); MONO 2 % (1-9); SEGS 62 % (42-75)
[2018-12-20 08:01] LABS: OVALOCYTES OCCASIONAL; POIKILOCYTOSIS OCCASIONAL
[2018-12-20 08:17] LABS: PLT 768 X1000 (130-400)
[2018-12-20 08:39] LABS: CALCIUM 7.7 mg/dL (8.8-10.2); CREATININE 1.4 mg/dL (0.7-1.2); POTASSIUM 3.5 mmol/L (3.5-5.1)
[2018-12-20] MEDS ORDERED: LASIX PO ONE (09:29)
[2018-12-20] MEDS: FOLIC ACID PO SCH (09:44)
[2018-12-20] MEDS: ZEBETA PO SCH (09:44)
[2018-12-20] MEDS: CALTRATE 600 + D PO SCH ×2 (09:44→20:20)
[2018-12-20] MEDS: ZYLOPRIM PO SCH ×2 (09:44→20:20)
[2018-12-20] MEDS: NORVASC PO SCH ×2 (09:44→20:20)
[2018-12-20] MEDS: ZIAC 5/6.25 MG PO SCH (09:44)
[2018-12-20] MEDS: TRICOR PO SCH (09:44)
[2018-12-20] MEDS: SODIUM CHLORIDE 0.9% INJ SCH (09:45)
[2018-12-20] MEDS: ASPIRIN EC PO SCH (09:45)
[2018-12-20] MEDS: NICODERM PATCH TD SCH (09:45)
[2018-12-20] MEDS: PROTONIX IV SCH (09:45)
--- NOTE | 2018-12-20 11:13 | PROGRESS NOTE ---
DATE: 12/20/2018 SUBJECTIVE: Patient reports pain in both hands. Knuckles are getting definitely much better. The swelling in both hands is a little bit better. OBJECTIVE: Vital Signs: Temperature 97.5 degrees, heart rate 74, respiratory rate 18, blood pressure 142/83 and O2 saturation 98% on room air. General: This a 58-year-old male lying in bed in no acute distress. Cardiovascular: S1, S2 heard. No murmurs, gallops, or rubs. Regular rate and rhythm. Respiratory: Clear bilaterally to auscultation. No work of breathing or using accessory muscles. Abdomen: Soft and nontender to palpation. Bowel sounds present. No organomegaly. Extremities: No clubbing, cyanosis, or edema. Peripheral pulses present in both legs. There is a redness in both hands and MCP's 2, 3 and 4; both hands are getting better, but swelling is still noted in both hands. Neurological: Patient alert and oriented x3. Moves all 4 extremities. LABORATORY DATA: Reviewed. ASSESSMENT AND PLAN: 1. Gouty attack. The patient is on Solu-Medrol 40 mg IV 8 hours. Patient is also on Protonix. We will continue with the same management. Initially, we had started him on Toradol, but because of renal dysfunction we stopped that medication. Patient is also on allopurinol. We will continue with the same management. 2. Urinary tract infection, ruled out. 3. Acute kidney injury getting better. We will continue to monitor. See BMP. 4. Hand swollen. I think because of the fluid that he has received plus the fluid that he had received plus the gouty attack the hand has become swollen. We are going to provide 1 dose of Lasix 80 mg and see how he does tomorrow. 5. Physical deconditioning. The patient has not been up since his whole hospitalization so we will consult physical therapy, and we will go from there. 6. Disposition: We will continue to monitor this patient closely. cc: Goldy Castañeda MD
[2018-12-20] MEDS ORDERED: MEDROL DOSEPAK PO SCH (12:45)
[2018-12-20] MEDS: MEDROL PO SCH ×2 (17:25→20:21)
[2018-12-21] MEDS: NORCO-10 PO SCH ×3 (05:57→20:50)
[2018-12-21] MEDS: LYRICA PO SCH ×3 (05:57→20:51)
[2018-12-21] MEDS: PROTONIX PO SCH (06:00)
[2018-12-21] MEDS ORDERED: FOSAMAX PO SCH (06:00)
[2018-12-21] MEDS: HUMALOG (PARKWAY) SUBQ SCH ×4 (06:40→20:56)
[2018-12-21 07:56] LABS: AGAP 13; BUN 34 mg/dL (8-22); CALCIUM 8.4 mg/dL (8.8-10.2); CHLORIDE 106 mmol/L (98-107); COSMO 288; ESTIMATED GFR > 60; GLUCOSE 115 mg/dL (70-104); POTASSIUM 3.6 mmol/L (3.5-5.1); SODIUM 140 mmol/L (136-145); TCO2 22 mmol/L (25-35)
[2018-12-21 08:02] LABS: BASO# 0.01 X1000 (0.0-0.2); EOS# 0.09 X1000 (0.0-0.7); EOS% 0.4 % (0.0-10.0); HEMATOCRIT 35.4 % (42.0-52.0); HEMOGLOBIN 11.4 g/dL (14.0-18.0); LYMPH% 14.7 % (20.5-51.1); MCH 29.5 PG (27-31); MCHC 32.2 g/dL (33-37); MCV 91.7 FL (81-99); MONO# 0.85 X1000 (0.11-0.59); MONO% 4.2 % (1.7-9.3); NEUT# 16.25 X1000 (1.4-6.5); NEUT% 79.7 % (42.2-75.2); RBC 3.86 XMIL (4.7-6.1); RDW 14.8 % (11.5-14.5)
[2018-12-21] MEDS: TRICOR PO SCH (08:42)
[2018-12-21] MEDS: ZYLOPRIM PO SCH ×2 (08:42→20:52)
[2018-12-21] MEDS: MEDROL PO SCH ×4 (08:42→20:53)
[2018-12-21] MEDS: FOLIC ACID PO SCH (08:42)
[2018-12-21] MEDS: NORVASC PO SCH ×2 (08:42→20:52)
[2018-12-21] MEDS: CALTRATE 600 + D PO SCH ×2 (08:42→20:51)
[2018-12-21] MEDS: ASPIRIN EC PO SCH (08:43)
[2018-12-21] MEDS: NICODERM PATCH TD SCH (08:43)
[2018-12-21] MEDS: ZIAC 5/6.25 MG PO SCH (08:43)
[2018-12-21] MEDS: ZEBETA PO SCH (08:45)
--- NOTE | 2018-12-21 09:06 | PROGRESS NOTE ---
DATE: 12/21/2018 SUBJECTIVE: Patient is still complaining of some pain in both hands, but it is getting better. Denies any fever or chills. He reports not being able to get up. OBJECTIVE: Vital Signs: Temperature 98.1 degrees, heart rate 75, respiratory rate 16, blood pressure 130/76, O2 saturation 98% on room air. General: This is a chronically ill-appearing 58- year-old male, lying in bed, in no acute distress. Cardiovascular: S1, S2 heard. No murmurs, gallops, or rubs. Regular rate and rhythm. Respiratory: Clear bilaterally to auscultation. No work of breathing or using accessory muscles. Abdomen: Soft, nontender to palpation. Bowel sounds present. No organomegaly. Extremities: No clubbing or cyanosis. Peripheral pulses present in both legs. There is redness in both hands, actually in both MCPs, 2nd, 3rd, and 4th, in both hands that are getting better, but swelling is basically the same when compared with the last 4 days. Neurological: Patient alert and oriented x3. Moves all 4 extremities. LABORATORY DATA: White cell count 20.4, hemoglobin 11.4, hematocrit 35.4, platelets 829,000. Normal BMP. ASSESSMENT AND PLAN: 1. Gouty attack. Patient has been on Solu-Medrol 40 mg intravenously every 8 hours since Saturday. That medication has been changed to Medrol Dosepak. His metacarpophalangeal joints, 2, 3, and 4 in both hands, are less red, but both hands are still puffy. There has not been any response to Toradol and Solu-Medrol. The patient has been provided also Lasix, but basically the swelling is still the same. 2. Urinary tract infection ruled out. 3. Acute kidney injury, resolved. 4. Physical deconditioning. The patient is not able to get up since he is here in the hospital. Physical Therapy has been consulted yesterday, but they have not seen this patient yet. We will continue to monitor. 5. Disposition. Considering that this patient's swelling in both hands is still the same, I am going to repeat the x-ray and will go from there. If the patient continues to have this swelling in both hands, we are going to consult Orthopedics and will go from there. cc: Goldy Castañeda MD [facility]
[2018-12-21 09:21] LABS: BANDS 1 % (0-1); LYMPHS 16 % (21-51); MONO 1 % (1-9); SEGS 82 % (42-75)
[2018-12-21 09:22] LABS: HYPOCHROM OCCASIONAL; POLYCHROM OCCASIONAL
[2018-12-21 09:35] LABS: PLT 829 X1000 (130-400)
--- NOTE | 2018-12-21 15:28 | Diag Imaging Result Doc PS360 ---
EXAM: HAND 2 VIEWS LEFT HISTORY: swollen hands TECHNIQUE: Left hand, two views COMPARISON: None. FINDINGS: No fracture. No dislocation. Mild metacarpal phalangeal joint space narrowing. No bone erosions. There is soft tissue swelling about the dorsum of the hand. IMPRESSION: Mild arthritis. Soft tissue swelling. Electronically signed by Shubham Munoz 12/21/2018 3:26 PM
--- NOTE | 2018-12-21 15:31 | Diag Imaging Result Doc PS360 ---
EXAM: HAND 2 VIEWS RIGHT HISTORY: swollen hands TECHNIQUE: Right hand, two views COMPARISON: None. FINDINGS: No fracture. No dislocation. Mild joint space narrowing to the third metacarpal phalangeal joint. No bone erosions. No periosteal reaction. IMPRESSION: Mild arthritis. Electronically signed by Shubham Munoz 12/21/2018 3:28 PM
[2018-12-22] MEDS: NORCO-10 PO SCH ×3 (06:00→21:49)
[2018-12-22] MEDS: LYRICA PO SCH ×3 (06:01→21:48)
[2018-12-22] MEDS: PROTONIX PO SCH (06:01)
[2018-12-22] MEDS: HUMALOG (PARKWAY) SUBQ SCH ×4 (06:43→21:49)
[2018-12-22 07:06] LABS: BASO# 0.01 X1000 (0.0-0.2); BASO% 0.1 % (0.0-0.8); EOS# 0.24 X1000 (0.0-0.7); EOS% 1.2 % (0.0-10.0); HEMATOCRIT 35.9 % (42.0-52.0); HEMOGLOBIN 11.8 g/dL (14.0-18.0); IMM GRAN# 0.38 X1000 (0.0-0.04); IMM GRAN% 1.9 % (0.0-0.5); LYMPH# 2.03 X1000 (1.2-3.4); LYMPH% 10.3 % (20.5-51.1); MCH 30.4 PG (27-31); MCHC 32.9 g/dL (33-37); MCV 92.5 FL (81-99); MONO# 0.65 X1000 (0.11-0.59); MONO% 3.3 % (1.7-9.3); MPV 10.9 FL (7.4-10.4); NEUT# 16.34 X1000 (1.4-6.5); NEUT% 83.2 % (42.2-75.2); PLT 765 X1000 (130-400); RBC 3.88 XMIL (4.7-6.1); RDW 14.9 % (11.5-14.5); WBC 19.65 X1000 (4.8-10.8)
[2018-12-22 07:17] LABS: AGAP 12; BUN 30 mg/dL (8-22); CALCIUM 8.4 mg/dL (8.8-10.2); CHLORIDE 103 mmol/L (98-107); COSMO 287; CREATININE 0.9 mg/dL (0.7-1.2); ESTIMATED GFR > 60; GLUCOSE 190 mg/dL (70-104); SODIUM 138 mmol/L (136-145); TCO2 23 mmol/L (25-35)
[2018-12-22 08:07] LABS: ANISOCYTOSIS 2+; LYMPHS 8 % (21-51); MONO 4 % (1-9); SEGS 88 % (42-75)
[2018-12-22] MEDS: ZYLOPRIM PO SCH ×2 (09:33→21:49)
[2018-12-22] MEDS: CALTRATE 600 + D PO SCH ×2 (09:33→21:49)
[2018-12-22] MEDS: NORVASC PO SCH ×2 (09:33→21:49)
[2018-12-22] MEDS: NICODERM PATCH TD SCH (09:33)
[2018-12-22] MEDS: ZIAC 5/6.25 MG PO SCH (09:33)
[2018-12-22] MEDS: FOLIC ACID PO SCH (09:33)
[2018-12-22] MEDS: TRICOR PO SCH (09:33)
[2018-12-22] MEDS: ZEBETA PO SCH (09:33)
[2018-12-22] MEDS: ASPIRIN EC PO SCH (09:34)
[2018-12-22] MEDS: MEDROL PO SCH ×4 (09:34→21:48)
[2018-12-22] MEDS: COLCRYS PO SCH ×3 (09:41→17:38)
--- NOTE | 2018-12-22 23:30 | PROGRESS NOTE ---
DATE: 12/22/2018 SUBJECTIVE: The patient notes overall he is feeling better. Still having some pain and swelling in his bilateral hands that is yet to resolve. At this point we will check a uric acid level, place him on colchicine as tolerated to see if this will help his gout. OBJECTIVE: Vital Signs: Reviewed. General: He is awake, alert. He is in no current distress. HEENT: Normocephalic. Neck: Supple. Cardiovascular: Regular rate. Chest: Clear. Abdomen: Soft. Extremities: Moves all extremities. ASSESSMENT: 1. Gouty attack with bilateral hand swelling. 2. Urinary tract infection, resolved. 3. Physical deconditioning. 4. Leukocytosis. PLAN: We will continue the patient in the hospital. Continue to follow. Add colchicine. Further orders as needed. cc: Donald Salgado MD
[2018-12-23] MEDS: LYRICA PO SCH (06:46)
[2018-12-23] MEDS: NORCO-10 PO SCH (06:46)
[2018-12-23] MEDS: PROTONIX PO SCH (06:46)
[2018-12-23] MEDS: HUMALOG (PARKWAY) SUBQ SCH (06:47)
[2018-12-23 07:59] VITALS: BP 118/84
[2018-12-23] MEDS: ZYLOPRIM PO SCH (09:34)
[2018-12-23] MEDS: CALTRATE 600 + D PO SCH (09:34)
[2018-12-23] MEDS: COLCRYS PO SCH (09:34)
[2018-12-23] MEDS: TRICOR PO SCH (09:35)
[2018-12-23] MEDS: FOLIC ACID PO SCH (09:35)
[2018-12-23] MEDS: MEDROL PO SCH (09:35)
[2018-12-23] MEDS: NORVASC PO SCH (09:35)
[2018-12-23] MEDS: ASPIRIN EC PO SCH (09:35)
[2018-12-23] MEDS: ZEBETA PO SCH (09:35)
[2018-12-23] MEDS: ZIAC 5/6.25 MG PO SCH (09:35)
[2018-12-23] MEDS: NICODERM PATCH TD SCH (09:40)
--- NOTE | 2018-12-24 03:25 | DISCHARGE SUMMARY ---
ADMISSION DATE: 12/17/2018 DISCHARGE DATE: 12/23/2018 ADDENDUM: The patient seen and examined by myself. Full note dictated and discussed with the nurse practitioner. On discharge the patient is awake. He is in no distress. His bilateral hand swelling has all but completely disappeared when the addition of colchicine. His leukocytosis is improving secondary to steroids. 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 cc: Donald Salgado MD
--- NOTE | 2018-12-24 13:42 | DISCHARGE SUMMARY ---
ADMISSION DATE: 12/17/2018 DISCHARGE DATE: 12/23/2018 ADMISSION DIAGNOSIS: 1. Septic arthritis versus gouty arthritis. 2. Leukocytosis. 3. Hypertension. 4. Rheumatoid arthritis. 5. Chronic pain. DISCHARGE DIAGNOSIS: 1. Gouty attack with bilateral hand swelling. 2. Urinary tract infection, resolved. 3. Physical deconditioning. 4. Leukocytosis. DIAGNOSTIC PROCEDURES AND FINDINGS: Hand x-ray 12/16/2018: Exam is nondiagnostic. The patient would not hold his hand correctly. Left hand x-ray 12/21/2018 shows mild arthritis, soft tissue swelling. Right hand x-ray 12/21/2018 shows mild arthritis. The 2 hand x-rays on 12/16/2018 both were nondiagnostic. CONSULTATIONS: None. HOSPITAL COURSE: Mr. Brooks is a 58-year-old male, who presented to [facility] with generalized pain that has become progressively worse. He had become bedbound because he could not move his hands and feet due to pain. He had similar episodes 1 month prior to admission and was diagnosed with gout attack. When he got to the ER on admission, his white count was 21,000, uric acid level was 7.1. He did have a UTI as well. He was placed on Toradol, Tylenol, vancomycin, cultures were obtained one of which grew coagulase-negative staph but this was contaminate. He was placed on Solu-Medrol, which slowly started to improve his hands. He was eventually started on Colchicine, which significantly improved his hand swelling and it was felt that he could finally go home. His urinalysis did have no growth so UTI was ruled out. He is now stable for discharge home. DISCHARGE MEDICATIONS: Folic acid 1 mg daily, Lyrica 75 mg t.i.d., metformin 1000 mg p.o. daily, vitamin D with calcium 1000 1 b.i.d., Remicade 100 mg IV as directed, lisinopril 40 mg daily, fenofibrate 160 mg p.o. daily, aspirin 81 mg daily, amitriptyline 75 mg p.o. daily, methotrexate 25 mg vial as directed, [place] 10 as needed for pain t.i.d., Fosamax 70 mg p.o. as directed, Zyloprim 100 mg p.o. b.i.d., Colchicine 0.6 mg p.o. t.i.d. DISCHARGE DIET: Heart healthy. DISCHARGE ACTIVITY: Resume activity as tolerated. DISPOSITION AND OTHER DISCHARGE INSTRUCTIONS: The patient is discharged home to self-care. He is to follow up with his PCP, take all medications as directed and return to the ER or call 911 for worsening complaints or concerns. All questions answered. DISCHARGE TIME: Greater than 35 minutes. Dictated by FERNANDO Adams for Donald Salgado MD cc: FERNANDO Adams MD
== END 2018-12-23 11:22 | disposition home health service (06) | DRG 554 ==
LOC: P.ED 20:24 → SUATTDRO 12-17 01:35 → P.ICU 12-17 01:35 → P.MEDSURG 12-18 11:47
PROVIDERS: ADMIT Family Medicine; ATTEND Family Medicine
CPT/HCPCS: 73120; 73130; 80048; 80053; 80104; 80301; 80305; 81001; 82009; 82550; 82805; 82948; 83605; 84484; 84550; 85025; 85610; 85730; 87040; 87088; 87275; 87276; 87804; 93005; 96361; 96365; 96367; 96375; 97163; 97530; 99285; A9270; C9113; G0431; G0434; G0477; J0131; J1815; J1885; J1940; J2020; J2543; J2920; J3370; J7030; J7050; J7509; S0164; XXXXX

== ENCOUNTER 2019-02-09 16:51 | Inpatient (IN) ==
[2019-02-09 18:32] LABS: BASO# 0.05 X1000 (0.0-0.2); BASO% 0.3 % (0.0-0.8); EOS# 0.61 X1000 (0.0-0.7); EOS% 3.2 % (0.0-10.0); HEMATOCRIT 36.6 % (42.0-52.0); HEMOGLOBIN 11.2 g/dL (14.0-18.0); IMM GRAN# 0.14 X1000 (0.0-0.04); IMM GRAN% 0.7 % (0.0-0.5); LYMPH# 4.28 X1000 (1.2-3.4); LYMPH% 22.4 % (20.5-51.1); MCH 26.2 PG (27-31); MCHC 30.6 g/dL (33-37); MCV 85.7 FL (81-99); MONO# 0.84 X1000 (0.11-0.59); MONO% 4.4 % (1.7-9.3); MPV 10.3 FL (7.4-10.4); NEUT# 13.21 X1000 (1.4-6.5); PLT 779 X1000 (130-400); RBC 4.27 XMIL (4.7-6.1); RDW 17.6 % (11.5-14.5); WBC 19.13 X1000 (4.8-10.8)
[2019-02-09 19:00] LABS: AGAP 20; ALB/GLOB RATIO 1.1; ALBUMIN 3.8 g/dL (3.5-5.0); ALKALINE PHOSPHATASE 86 U/L (32-122); BUN 19 mg/dL (8-22); CALCIUM 10.4 mg/dL (8.8-10.2); CHLORIDE 101 mmol/L (98-107); COSMO 286; ESTIMATED GFR > 60; GLUCOSE 144 mg/dL (70-104); GOT 22 U/L (10-34); GPT 43 U/L (10-44); POTASSIUM 3.8 mmol/L (3.5-5.1); SODIUM 141 mmol/L (136-145); TCO2 20 mmol/L (25-35); TOTAL BILIRUBIN 0.26 mg/dL (0.20-1.00); TOTAL PROTEIN 7.4 g/dL (6.3-8.3)
[2019-02-09] MEDS ORDERED: NS 1,000 ML IV ONE ×2 (20:08→20:29)
--- NOTE | 2019-02-09 20:28 | Diag Imaging Result Doc PS360 ---
CHEST-2 VIEWS - 02/09/2019 INDICATION: short of breath COMPARISON: None FINDINGS: There is some faint linear atelectasis in the lingula. The lungs are clear. Heart size is normal. No pneumothorax or pleural effusion. IMPRESSION: Negative exam. Electronically signed by Lukasz Sarmiento 02/09/2019 8:26 PM
[2019-02-09] MEDS ORDERED: ZOSYN 3.375 GM in NS 50 ML IV ONE (20:35)
[2019-02-09] MEDS ORDERED: VANCOMYCIN 1 GM/NS 1 GM/250 ML IVPB IV ONE (20:35)
[2019-02-09 21:44] LABS: URINE SOURCE CLEAN CATCH
[2019-02-09 21:46] LABS: BILIRUBIN URINE NEGATIVE (NEGATIVE); BLOOD URINE NEGATIVE (NEGATIVE); COLOR YELLOW; GLUCOSE URINE TRACE mg/dL (NEGATIVE); KETONE URINE NEGATIVE (NEGATIVE); LEUKOCYTES URINE TRACE (NEGATIVE); NITRITE URINE NEGATIVE (NEGATIVE); PROTEIN URINE 30 mg/dL (NEGATIVE); SP GRAVITY URINE 1.029; TURBIDITY URINE CLEAR (CLEAR); UROBILINOGEN URINE 2 mg/dL (NORMAL)
[2019-02-09 21:54] LABS: UR EPITHELIAL CELLS <10 /HPF (<10); URINE BACTERIA NEGATIVE /HPF; URINE WBC <10 /HPF (<10)
[2019-02-09 22:40] LABS: URINE CASTS NONE SEEN; URINE CRYSTALS CA OXALATE PRESENT; URINE YEAST NONE SEEN
--- NOTE | 2019-02-09 22:50 | PROVIDER DOCUMENTATION ---
This chart was entered by Yesenia Chapman Scribe, acting as scribe for Jennifer Engel MD. HPI-General Adult - General Chief Complaint: Abnormal Lab[s] Stated Complaint: HEART RATE HIGH,WHITE BLOOD COUNT HIGH Time Seen by Provider: 02/09/19 20:01 Source: patient Allergies/Adverse Reactions: Patient Allergies Allergy/AdvReac Type Severity Reaction Status Date / Time No Known Allergies Allergy Verified 12/08/16 13:14 Home Medications: Home Medication List Medication Instructions Recorded Confirmed Last Taken Type Folic Acid 1 mg PO DAILY 12/08/16 12/16/18 12/08/16 History Alendronate [Fosamax] 70 mg PO DIRECTED 12/16/18 12/16/18 Unknown History Amitriptyline [Elavil] 75 mg PO DAILY 12/16/18 12/16/18 Unknown History Aspirin [Aspir-Low] 81 mg PO DAILY 12/16/18 12/16/18 Unknown History Calcium Carbonate/Vitamin D3 1 cap PO BID 12/16/18 12/16/18 Unknown History [Calcium 1,000 + D3 Caplet] Fenofibrate 160 mg PO DAILY 12/16/18 12/16/18 Unknown History Folic Acid 1 mg PO DAILY 12/16/18 12/16/18 Unknown History Hydrocodone/Acetaminophen [[place] 1 tab PO TID 12/16/18 12/16/18 Unknown History 10-325 Tablet] Infliximab [Remicade] 100 mg IV DIRECTED 12/16/18 12/16/18 Unknown History Lisinopril 40 mg PO DAILY 12/16/18 12/16/18 Unknown History Metformin [Glucophage] 1,000 mg PO DAILY 12/16/18 12/16/18 Unknown History Methotrexate Sodium [Methotrexate] 15 mg DIRECTED 12/16/18 12/16/18 Unknown History Pregabalin [Lyrica] 75 mg PO TID 12/16/18 12/16/18 Unknown History Allopurinol [Zyloprim] 100 mg PO BID 12/19/18 12/19/18 Unknown History Colchicine [Colcrys] 0.6 mg PO TID #90 tab 12/23/18 Unknown Rx - History of Present Illness -Gen Adult Nature of Presenting Problems: 58yom presents to ED cc abnormal labs at his PCP today. Pt reports he went to PCP to get med refills and they duong labs and the white count was elevated so they sent him to ED for further evaluation. Pt does report he has been on prednisone 20mg qday for last week for a gout flare up. Pt reports he was inpatient in ICU in November for sepsis but unsure why he got septic. Pt denies pain, N/V/D, cough, diarrhea, fevers or chills He states that he has a chronic wound on his right ankle and had an MRI done 1 month ago that was negative for any osteomyelitis. Pt has hx of HTN, GERD and Gout. Pt is non-toxic in appearance. Location of Pain/Injury: reports: none Pain Radiation: reports: no radiation Quality of Pain: reports: none Modifying Factors: improves with: nothing Associated Symptoms: reports: denies symptoms Similar Symptoms Previously?: No Recently seen or treated by another doctor?: No Review of Systems - Adult - REVIEW OF SYSTEMS - ADULT Constitutional: reports: see HPI. denies: chills, fever, fatique Eyes: reports: no symptoms reported Ears, Nose, Mouth & Throat: reports: no symptoms reported Cardiovascular: reports: no symptoms reported Respiratory: reports: no symptoms reported Gastrointestinal: reports: no symptoms reported. denies: diarrhea, nausea, vomiting Genitourinary: reports: no symptoms reported Musculoskeletal: reports: no symptoms reported Integumentary: reports: no symptoms reported Neurological: reports: no symptoms reported Psychiatric: reports: no symptoms reported Endocrine: reports: no symptoms reported Hematologic/Lymphatic: reports: no symptoms reported Allergic/Immunologic: reports: no symptoms reported All Other Systems: Reviewed and Negative Past History - Adult - PAST MEDICAL HISTORY-ADULT Review of Records: reports: Nursing Assessment Review, Medications Reviewed, Social history reviewed & non-contributory. Major Childhood Illnesses: reports: denies history Cardiovascular: reports: HTN, hyperlipidemia Respiratory: reports: denies history Gastrointestinal: reports: GERD Obstetrical/Gynecological: reports: denies history Genitourinary: reports: denies history Musculoskeletal: reports: arthritis (rheumatoid), chronic pain Neurological: reports: denies history Endocrine/Immune: reports: denies history Other Conditions: reports: denies history - PRIOR SURGERIES/PROCEDURES Surgical/Procedure History: reports: reviewed, not pertinent - IMMUNIZATION STATUS Childhood Immunizations: See Nurse Assessment Flu Vaccine: See Nurse Assessment - FAMILY HISTORY Family History: reviewed, not pertinent - SOCIAL HISTORY Smoking: denies Physical Exam-General - PHYSICAL EXAM-ADULT Initial Vital Signs Reviewed: Yes - CONSTITUTIONAL General Appearance: appears well, alert, no apparent distress. negative: anxious, combative - EYES Eyes: PERRL/EOMI, pink conjunctivae. negative: meningismus, photophobia - HEAD, EARS, NOSE, MOUTH & THROAT HENMT: normocephalic/atraumatic, normal ENT inspection. negative: angioedema, hearing deficit - NECK Neck: non-tender, full range of motion, supple, normal inspection. negative: Brudzinski's sign, carotid bruit, C-spine tenderness - RESPIRATORY Respiratory: chest non-tender, lungs clear, normal breath sounds, no pleuratic chest pain, no respiratory distress, no accessory muscle use. negative: crackles, rales, rhonchi, stridor, wheezing - CARDIOVASCULAR Cardiovascular: normal peripheral pulses, no edema, no murmur, tachycardia. negative: regular rate, rhythm, bradycardia - GASTROINTESTINAL (ABDOMEN) Abdominal Exam: normal bowel sounds, non tender, soft, no organomegaly. negative: guarding, rigid, rebound, tenderness - LYMPHATIC Lymphatic: no adenopathy. negative: enlargement, striations - MUSCULOSKELETAL Back Exam: normal inspection, no CVA tenderness, no vertebral tenderness. negative: swelling Extremity: normal range of motion, normal gait, no pedal edema, no calf tenderness, normal capillary refill, pelvis stable, other (3x3 open pressure wound on right ankle that has no active drainage, odor or surrounding erythema). negative: erythema, swelling - SKIN Integumentary: tenderness (3x3 open pressure wound on right ankle that has no active drainage, odor or surrounding erythema). 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 negative: facial droop, focal weakness - PSYCHIATRIC Psych/Mental Status: normal mood/affect, normal thought content, normal thought process, oriented x 3. negative: disoriented x 3, anxious, disheveled, depressed affect Progress - PLAN OF CARE/RESULTS Progress/Plan/Lab Results: Vital Signs - 8 hr 02/09/19 16:58 02/09/19 18:51 02/09/19 19:38 Temperature 98.0 F 98.4 F Pulse Rate 117 H 116 H 100 H Respiratory Rate 18 20 17 Blood Pressure 119/73 105/65 98/67 O2 Sat by Pulse Oximetry 100 97 92 L 02/09/19 19:39 02/09/19 19:40 Temperature 98.1 F Pulse Rate 106 H 111 H Respiratory Rate 18 32 H Blood Pressure O2 Sat by Pulse Oximetry 89 L 92 L Laboratory Results - last 24 hr 02/09/19 02/09/19 02/09/19 17:02 17:10 17:10 WBC 19.13 H RBC 4.27 L Hgb 11.2 L Hct 36.6 L MCV 85.7 MCH 26.2 L MCHC 30.6 L RDW Std Deviation 17.6 H Plt Count 779 H MPV 10.3 Immature Gran % (Auto) 0.7 H Neut % (Auto) 69.0 Lymph % (Auto) 22.4 [place] % (Auto) 4.4 Eos % (Auto) 3.2 Baso % (Auto) 0.3 Immature Gran # (Auto) 0.14 H Neut # (Auto) 13.21 H Lymph # (Auto) 4.28 H [place] # (Auto) 0.84 H Eos # (Auto) 0.61 Baso # (Auto) 0.05 Sodium 141 Potassium 3.8 Chloride 101 Carbon Dioxide 20 L Anion Gap 20 BUN 19 Creatinine 1.0 Estimated GFR/1.73 m2 > 60 BUN/Creatinine Ratio 19 Glucose 144 H Calculated Osmolality 286 Calcium 10.4 H Total Bilirubin 0.26 AST 22 ALT 43 Alkaline Phosphatase 86 Total Protein 7.4 Albumin 3.8 Globulin 3.6 Albumin/Globulin Ratio 1.1 Plasma Lactate 4.2 H Orders Category Date Time Status CHEST-2 VIEWS [RAD] Stat Exams 02/09/19 20:07 Completed BLOOD CULTURE [BLDCUL] Stat Lab 02/09/19 17:10 Results CBC WITH ELECTRONIC DIFF [HEME] Stat Lab 02/09/19 17:10 Completed COMPREHENSIVE METABOLIC PANEL [CHEM] Stat Lab 02/09/19 17:10 Completed LACTATE, PLASMA [CHEM] Stat Lab 02/09/19 17:02 Completed URINALYSIS W/POSS RFLX CULT [URINALYSIS] Stat Lab 02/09/19 20:06 Uncollected URINE CULTURE [RM] Stat Lab 02/09/19 20:07 Uncollected 0.9% Sodium Chloride Inj [Ns] 1,000 ml Med 02/09/19 20:08 Active IV 999 mls/hr 0.9% Sodium Chloride Inj [Ns] 1,000 ml Med 02/09/19 20:29 Active IV 999 mls/hr Piperacillin/Tazobactam [Zosyn] 3.375 gm Med 02/09/19 20:35 Active 0.9% Sodium Chloride Inj [Ns] 50 ml IV NOW Vancomycin 1 gm/Ns Med 02/09/19 20:35 Active 1 gm in 250 ml IV NOW Generalized Adult Illness >60 Stat Oth 02/09/19 18:13 Ordered Patient with LA to 4.2 and initially hypotensive and tachycardic. Given 2L NS and started on broad spectrum antibiotics. I am unsure what his source is. CXR negative, UA negative, and wound on RLE looks clean overall. I spoke to patient about being monitored in the hospital given his history of sepsis. SPoke to Dr Alvarez who agreed to OBS the patient. Further orders to be placed by hospitalist team. Vitals improving. Result Diagrams: 02/09/19 17:10 02/09/19 17:10 - EKG 1 Time of EKG reading by physician:: 16:55 EKG Read and Signed by:: Tom Gandhi (Dr. Engel read EKG also 2033) EKG Interpretation (*Must complete 3 of following elements*): Normal Rate: 117 Rhythm: sinus tachycardia QRS: normal W[place] Interval: normal - XRAY 1 XRAY: Bilateral XRAY Study: Chest Impression: See EMR Report (IMPRESSION: Negative exam. Electronically signed by Lukasz Sarmiento 02/09/2019 8:26 PM) - CONSULTS/PCP/HOSPITALIST Notification #1 *Consult/PCP/Hospitalist*: Dr Alvarez Time Discussed: 22:50 Consult Disposition: Admit Departure - Departure Date of Disposition Decision: 02/09/19 Time of Disposition Decision: 22:42 DIAGNOSIS: Sepsis associated hypotension, Tachycardia, Leukocytosis Disposition: ADMITTED INPATIENT 09 Certified Medical Emergency: Emergent Condition: Stable Referrals and Follow-Ups: Isaias Godfrey [Primary Care Provider] - - Critical Care Note This patient required my direct & personal management of CC.: Yes Total Time (mins): 75 Critical Care Statement: This patient required my direct personal management to treat or rule out processes, the absence of which, could potentiallly result in sudden, clinically significant life or limb threatening deterioration. Attestation - Physician/ MARINO Attestation Patient care was provided by Advanced Practice Provider:: No The physician spent face to face time with patient:: Yes Advanced Practice Provider documentation review:: Supervising physician onsite and consulted in the evaluation and care of this patient. The physician did have a face to face encounter with the patient. This chart was documented by the indicated scribe, (Yesenia Chapman Scribe) and accurately reflects the services I performed and decisions made by me, Jennifer Engel MD, as attested by the provider's signature.
[2019-02-10] MEDS ORDERED: VANCOMYCIN IV PER PHARMACY MISC SCH (00:49)
[2019-02-10] MEDS ORDERED: ZOFRAN IV PRN (00:49)
[2019-02-10] MEDS: NS 1,000 ML IV SCH ×2 (02:35→14:08)
[2019-02-10] MEDS: ZOSYN 3.375 GM in NS 50 ML IV SCH ×4 (03:08→21:42)
[2019-02-10] MEDS: VANCOMYCIN 1,500 MG in NS 250 ML IV ONE ×2 (03:43→04:02)
[2019-02-10] MEDS: HUMULIN R SUBQ SCH ×3 (06:27→21:42)
[2019-02-10 07:35] LABS: BASO# 0.05 X1000 (0.0-0.2); BASO% 0.4 % (0.0-0.8); EOS# 0.73 X1000 (0.0-0.7); EOS% 5.5 % (0.0-10.0); HEMATOCRIT 29.5 % (42.0-52.0); HEMOGLOBIN 8.8 g/dL (14.0-18.0); IMM GRAN# 0.12 X1000 (0.0-0.04); IMM GRAN% 0.9 % (0.0-0.5); LYMPH# 2.94 X1000 (1.2-3.4); LYMPH% 22.2 % (20.5-51.1); MCH 25.7 PG (27-31); MCHC 29.8 g/dL (33-37); MONO# 0.55 X1000 (0.11-0.59); MONO% 4.2 % (1.7-9.3); MPV 9.9 FL (7.4-10.4); NEUT# 8.84 X1000 (1.4-6.5); NEUT% 66.8 % (42.2-75.2); PLT 551 X1000 (130-400); RBC 3.43 XMIL (4.7-6.1); RDW 17.4 % (11.5-14.5); WBC 13.23 X1000 (4.8-10.8)
[2019-02-10 07:53] LABS: AGAP 11; BUN 20 mg/dL (8-22); CALCIUM 8.8 mg/dL (8.8-10.2); CHLORIDE 110 mmol/L (98-107); COSMO 285; CREATININE 0.9 mg/dL (0.7-1.2); ESTIMATED GFR > 60; GLUCOSE 123 mg/dL (70-104); POTASSIUM 3.8 mmol/L (3.5-5.1); SODIUM 141 mmol/L (136-145); TCO2 20 mmol/L (25-35)
--- NOTE | 2019-02-10 08:06 | EKG Report ---
Test Performed on : 02/09/2019 4:55:58 PM Test Reason : ELEVATED HR Blood Pressure : / mmHG Vent. Rate : 117 BPM Atrial Rate : 117 BPM P-R Int : 126 ms QRS Dur : 076 ms QT Int : 312 ms P-R-T Axes : 074 -18 063 degrees QTc Int : 435 ms Sinus tachycardia. Otherwise normal ECG When compared with ECG of 16-DEC-2018 21:45, No significant change was found Unconfirmed Result
[2019-02-10] MEDS: NORCO-10 PO SCH ×3 (08:35→16:58)
[2019-02-10] MEDS: PRAVACHOL PO SCH (08:36)
[2019-02-10] MEDS: ZYLOPRIM PO SCH ×2 (08:36→21:43)
[2019-02-10] MEDS: SSD CREAM TOP SCH (08:40)
--- NOTE | 2019-02-10 15:40 | HISTORY AND PHYSICAL ---
PRIMARY CARE PHYSICIAN: Dr. Godfrey. CHIEF COMPLAINT: Abnormal labs. HISTORY OF PRESENTING ILLNESS: A 58-year-old male with a history of hypertension, diabetes mellitus type 2, and hyperlipidemia and gout, who had presented to the emergency department with abnormal labs. Apparently, he had went to his primary care physician, who duong labs and noticed that his white blood cells were elevated, however, he denied any kind of symptoms. Patient when he arrived to the ER, he was noted to be somewhat hypotensive. He received IV fluids and his blood pressure improved. Due to his presenting symptoms, it was thought we would place him in for observation and further evaluation and management. At the time of my examination, the patient denied any headache, fever, chills, chest pain, shortness of breath, hemoptysis, or weight changes. States that he feels okay. PAST MEDICAL HISTORY: Includes gout, hypertension, diabetes mellitus type 2, hyperlipidemia. PAST SURGICAL HISTORY: Hernia repair. ALLERGIES: No known drug allergies. CURRENT MEDICATIONS: Include allopurinol 100 mg p.o. b.i.d., amitriptyline 75 mg p.o. daily, [place] 10/325 1 p.o. t.i.d., lisinopril 40 mg p.o. daily, pravastatin 40 mg p.o. daily, Lyrica 75 mg p.o. t.i.d., silver sulfadiazine 25 mg topical daily. SOCIAL HISTORY: Forty pack years history of smoking. Denies any history of alcohol or illicit drug use. FAMILY HISTORY: Positive for coronary artery disease in mother. REVIEW OF SYSTEMS: A 14-point review of systems is as per HPI, other systems negative. PHYSICAL EXAMINATION: GENERAL: Cooperative, friendly male. He is resting more comfortably now. VITAL SIGNS: Temperature 98.0, pulse 117, respiration 18, blood pressure 98/67. HEENT: Atraumatic, normocephalic. Extraocular movements intact. PERRLA. NECK: No masses. CHEST: Clear to auscultation. CARDIOVASCULAR: Regular rate and rhythm. ABDOMEN: Soft, positive bowel sounds. EXTREMITIES: A wound on the right dorsal aspect of the ankle. GENITOURINARY: No bladder distention. SKIN: Warm. LABORATORIES AND STUDIES: WBC is 19.12, hemoglobin 11.2, hematocrit 36.6, platelet 779. Sodium 141, potassium 3.8, chloride 101, CO2 20, BUN is 19, creatinine is 1.0, glucose of 144. ASSESSMENT: A 58-year-old male with a history of gout, hypertension, diabetes mellitus type 2, hyperlipidemia, who was sent to the emergency room due patient having abnormal labs. It was noted that he had an elevated white count. The patient apparently had been on steroids for about a week or so prior to seeing his primary care physician for gout flare. However, he was somewhat hypotensive and he received intravenous fluids and it was thought we will place him for observation and further evaluation and management. 1. Leukocytosis possibly from steroids. 2. Hypotension. Will need to rule out infection. 3. Right ankle wound. 4. Diabetes mellitus type 2. PLAN: 1. Will admit the patient to Medical floor with telemetry. 2. Will check blood cultures, start patient on empiric antibiotics. 3. Will continue with IV fluid. 4. Will do wound care. 5. Monitor blood glucose and put patient on a sliding scale insulin regimen. 6. Will continue to follow, reassess, and make further recommendation based on the patient's clinical course. cc: Fox Alvarez MD
[2019-02-10] MEDS: LYRICA PO SCH (17:10)
--- NOTE | 2019-02-10 18:48 | PROGRESS NOTE ---
DATE: 02/10/2019 SUBJECTIVE: His doctor is Dr. Godfrey. He was admitted with abnormal labs. This is a 58-year-old male, history of hypertension, diabetes mellitus type 2, hyperlipidemia, and gout, presented to the emergency department with abnormal labs. Apparently he went to his primary care physician who duong labs and noticed that his white cell counts were elevated. He denied any kind of symptoms. The patient arrived in the ER and was noted to be somewhat hypotensive. He received some IV fluids and his blood pressure improved. He thought he would place him in for observation. At the time of examination, the patient denied any headache, fever, chills, chest pain, shortness of breath, hemoptysis, or weight changes. He states that he feels okay. PAST MEDICAL HISTORY: Gout, hypertension, diabetes mellitus, hyperlipidemia. He was admitted with leukocytosis, suspect possibly from steroids. He is complaining of bilateral knee pain and does not really want to get up because it hurts too much. OBJECTIVE: He was hypotensive when he came in and now is better. On exam today, his sister is at the bedside. He is afebrile, temperature 99, respirations 16, blood pressure 135/64. Pupils are equal and round. Lungs are clear in all lung zheng. Cardiovascular exam with regular rhythm and rate without murmur or S3. Abdomen is soft. Skin is warm and dry. Urine output was 1450 mL. Blood sugar is 146 and 119. REVIEW OF LABS: White count, when he came in, 19,130, this morning was 13,230. Hematocrit 36, this morning it was 29. Platelet count 779,000 on admission and this morning 551,000. Electrolytes with sodium of 141, potassium 3.8, chloride 110, BUN 20, creatinine 0.9, blood sugar is 146, 123, 111, and 119. His plasma lactate level was 1.4. He had two sets of urine cultures and blood cultures, pending. ASSESSMENT AND PLAN: 1. Leukocytosis. I suspect this was from steroids. I do not see any active infection. White blood cell count has come down quite a bit this morning. 2. He presented hypotensive. He may have been a little volume depleted. 3. Right ankle wound. Continue topical care. 4. Diabetes mellitus type 2. Blood sugars appear under fairly good control. REVIEW OF MEDICATIONS: He is on allopurinol 100 mg b.i.d., he is on normal saline at 125 mL an hour, Pravachol 40 mg a day, he puts on silver sulfadiazine cream on his ankle ulcer and they were giving him vancomycin 2400 mg IV q 18 hours, Zosyn 3.375 grams IV q six hours. He is asking for his home medications, particularly Lyrica, which he takes 75 mg t.i.d. and he is taking [place] at home, 10 mg t.i.d., Elavil 75 mg a day, and I guess we will start those back. cc: Chago Donohue MD
[2019-02-10] MEDS: COLCRYS PO SCH (21:43)
[2019-02-10] MEDS: ELAVIL PO SCH (21:43)
[2019-02-10] MEDS ORDERED: VANCOMYCIN 2,400 MG in NS 500 ML IV SCH (22:00)
[2019-02-11] MEDS: NS 1,000 ML IV SCH (01:20)
[2019-02-11] MEDS: ZOSYN 3.375 GM in NS 50 ML IV SCH ×2 (03:33→09:28)
[2019-02-11] MEDS: HUMULIN R SUBQ SCH ×4 (06:39→22:06)
[2019-02-11] MEDS: LYRICA PO SCH ×3 (09:27→22:05)
[2019-02-11] MEDS: NORCO-10 PO SCH ×3 (09:27→22:05)
[2019-02-11] MEDS: ZYLOPRIM PO SCH ×2 (09:27→22:05)
[2019-02-11] MEDS: PRAVACHOL PO SCH (09:27)
[2019-02-11] MEDS: COLCRYS PO SCH ×2 (09:27→21:58)
[2019-02-11] MEDS ORDERED: MILK OF MAGNESIA PO PRN (13:00)
--- NOTE | 2019-02-11 13:16 | PROGRESS NOTE ---
DATE: 02/11/2019 SUBJECTIVE: Mr. Brooks says he thinks his knees may be a little better, and he tried to walk a little bit with Physical Therapy. I started back his colchicine yesterday. OBJECTIVE: Vital Signs: Temp 99 degrees, pulse 100, respirations 20, blood pressure 132/66. HEENT: Pupils are equal and round. Lungs: Clear in all lung zheng. Cardiovascular: Regular rhythm and rate without murmur or S3. Abdomen: Soft. Skin: Warm and dry. LABORATORY DATA: Blood sugars 149, 109, 117. ASSESSMENT AND PLAN: 1. Leukocytosis. Suspect this is from steroids. 2. Bilateral knee pain, acute gouty arthritis. 3. Presented with hypotension, which is resolved. 4. Right ankle wound. Continue topical care. Is better. 5. Diabetes mellitus type 2. 6. Constipation. I will add some milk of magnesia if he needs it. On review of his medications, he is on allopurinol 100 mg b.i.d., Elavil 75 mg at bedtime, colchicine 0.6 mg b.i.d., Pravachol 40 mg a day, Lyrica 75 mg t.i.d., vancomycin 2400 mg IV every 18 hours, Zosyn 3.375 grams every 6 hours. No growth from blood cultures. No growth from urine. cc: Chago Donohue MD
[2019-02-11] MEDS: SSD CREAM TOP SCH (13:19)
[2019-02-11] MEDS: SANTYL OINT TOP SCH (17:08)
[2019-02-11] MEDS: ELAVIL PO SCH (22:05)
[2019-02-12] MEDS: HUMULIN R SUBQ SCH ×4 (06:38→22:02)
[2019-02-12] MEDS: NORCO-10 PO SCH ×3 (09:07→21:59)
[2019-02-12] MEDS: LYRICA PO SCH ×3 (09:08→22:00)
[2019-02-12] MEDS: COLCRYS PO SCH ×2 (09:08→22:00)
[2019-02-12] MEDS: ZYLOPRIM PO SCH ×2 (09:08→22:01)
[2019-02-12] MEDS: PRAVACHOL PO SCH (09:08)
[2019-02-12] MEDS: SOLU-MEDROL IV SCH ×2 (11:55→21:59)
[2019-02-12] MEDS: SANTYL OINT TOP SCH (11:55)
--- NOTE | 2019-02-12 13:07 | PROGRESS NOTE ---
DATE: 02/12/2019 SUBJECTIVE: Mr. Brooks says he feels a little bit better. He tried to do some standing. His right wrist is inflamed today, and he can see quite a bit of swelling and pain from acute gouty arthritis. OBJECTIVE: Temperature 99 degrees, pulse 97, respirations 18, and blood pressure 158/89. Pupils are equal and round, and reactive to light and accommodation. Oral nasal mucosa unremarkable. Conjunctiva pink. Sclerae clear. Lungs are clear in all lung zheng. Cardiovascular exam with regular rhythm and rate without murmur or S3. Abdomen is soft, nontender, and nondistended. Skin is warm and dry. Right wrist swollen up and tender both knees with some mild effusion. ASSESSMENT AND PLAN: 1. Acute gouty arthritis. Leukocytosis from steroids. I am actually going to put him on Solu- Medrol as he has a new flare up in his right wrist. I put him on colchicine, and he seems a little better. 2. Bilateral knee pain from gouty arthritis. 3. Hypertension. 4. Right ankle wound, which seems to be healing. 5. Diabetes mellitus type 2. 6. Constipation which is improved. 7. White count has actually come down to 13,000. 8. Continue physical therapy. cc: Chago Donohue MD
[2019-02-12] MEDS: ELAVIL PO SCH (21:59)
[2019-02-13] MEDS: SOLU-MEDROL IV SCH ×3 (04:53→20:44)
[2019-02-13] MEDS: HUMULIN R SUBQ SCH ×4 (06:49→20:46)
[2019-02-13] MEDS: COLCRYS PO SCH ×2 (08:44→20:44)
[2019-02-13] MEDS: LYRICA PO SCH ×3 (08:44→20:44)
[2019-02-13] MEDS: NORCO-10 PO SCH ×3 (08:44→20:44)
[2019-02-13] MEDS: ZYLOPRIM PO SCH ×2 (08:44→20:43)
[2019-02-13] MEDS: PRAVACHOL PO SCH (08:44)
[2019-02-13] MEDS: SANTYL OINT TOP SCH (12:15)
[2019-02-13] MEDS ORDERED: DULCOLAX PR PRN (12:17)
--- NOTE | 2019-02-13 14:09 | PROGRESS NOTE ---
DATE: 02/13/2019 He is better. Knees are better. His wrist feels better. I think the Solu-Medrol is helping a lot. He is complaining of constipation. He wants to be able to get up and go use the bathroom. He cannot use the bed peres. OBJECTIVE: Temperature 98 degrees, pulse 100, respirations 18, blood pressure 132/57. No distended neck veins. Lungs are clear in all lung zheng.Cardiovascular: Regular rhythm and rate without murmur or S3. Tenosynovitis in the right wrist is markedly diminished. He has less swelling. Knees are less swollen and tender. Blood sugars still running a little high 325, 250, 343. Seems in better spirits. I gave him some milk of magnesia and Dulcolax suppository use p.r.n. ASSESSMENT/PLAN: 1. Acute gouty arthritis. Leukocytosis suspect more from the steroids. No sign of active infection but impressive tenosynovitis in his right wrist and both knees. He is making some progress. 2. Bilateral knee pain from gouty arthritis. Physical therapy has been able to get him up. 3. Hypertension blood pressure well controlled. 4. Right ankle wound superficial ulcer, which is healing. 5. Diabetes mellitus type 2. Sugars still running high that is from Solu-Medrol. 6. Constipation. Hopefully can improve as he is able to get up and ambulate and use something besides bed peres. 7. White count has come down in spite of the Solu-Medrol. He was at 19,000 and I will recheck the white count again. His chemistries, renal function seem to be doing well. Creatinine is 0.9, sodium 141, potassium 3.8. I will check them again tomorrow. cc: Chago Donohue MD
[2019-02-13] MEDS: ELAVIL PO SCH (20:43)
[2019-02-14] MEDS: HUMULIN R SUBQ SCH ×4 (06:23→21:08)
[2019-02-14] MEDS: SOLU-MEDROL IV SCH ×3 (06:23→21:09)
[2019-02-14 07:07] LABS: HEMATOCRIT 27.4 % (42.0-52.0); HEMOGLOBIN 8.5 g/dL (14.0-18.0); IMM GRAN# 0.02 X1000 (0.0-0.04); IMM GRAN% 0.1 % (0.0-0.5); LYMPH# 1.43 X1000 (1.2-3.4); LYMPH% 9.7 % (20.5-51.1); MCH 25.8 PG (27-31); MONO# 0.36 X1000 (0.11-0.59); MONO% 2.4 % (1.7-9.3); MPV 9.5 FL (7.4-10.4); NEUT# 12.89 X1000 (1.4-6.5); NEUT% 87.8 % (42.2-75.2); PLT 528 X1000 (130-400); RDW 16.1 % (11.5-14.5)
[2019-02-14 07:16] LABS: AGAP 12; BUN 12 mg/dL (8-22); CALCIUM 8.2 mg/dL (8.8-10.2); CHLORIDE 108 mmol/L (98-107); COSMO 284; CREATININE 0.7 mg/dL (0.7-1.2); ESTIMATED GFR > 60; GLUCOSE 194 mg/dL (70-104); MAGNESIUM 1.9 mg/dL (1.5-2.7); POTASSIUM 3.5 mmol/L (3.5-5.1); SODIUM 140 mmol/L (136-145); TCO2 20 mmol/L (25-35)
[2019-02-14 07:35] LABS: BANDS 2 % (0-1); LYMPHS 6 % (21-51); MONO 2 % (1-9); SEGS 90 % (42-75)
[2019-02-14 07:36] LABS: ANISOCYTOSIS 1+; HYPOCHROM 1+
[2019-02-14] MEDS: ZYLOPRIM PO SCH ×2 (08:17→21:07)
[2019-02-14] MEDS: COLCRYS PO SCH ×2 (08:17→21:08)
[2019-02-14] MEDS: LYRICA PO SCH ×3 (08:17→21:07)
[2019-02-14] MEDS: NORCO-10 PO SCH ×3 (08:17→21:07)
[2019-02-14] MEDS: PRAVACHOL PO SCH (08:17)
[2019-02-14] MEDS: SANTYL OINT TOP SCH (08:20)
--- NOTE | 2019-02-14 12:00 | PROGRESS NOTE ---
DATE: 02/14/2019 SUBJECTIVE: Mr. Brooks is feeling much better. He was able to walk around yesterday. Knee pain is diminished. Right hand is less swollen and less painful. OBJECTIVE: Vital Signs: Temperature 97.7 degrees, pulse 80, respirations 18, blood pressure 141/72. HEENT: Pupils are equal and round. Lungs: Clear in all lung zheng. Cardiovascular: Regular rhythm and rate without murmur or S3. Abdomen: Soft. Skin: Warm and dry. ASSESSMENT AND PLAN: 1. Acute gouty arthritis, leukocytosis suspected was from the steroids, he is doing better. Impressive tenosynovitis and that has gone down as he is on intravenous Solu-Medrol. 2. Bilateral knee pain from gouty arthritis, right wrist and hand with tenosynovitis, doing much better. 3. Hypertension, blood pressure controlled. 4. Right ankle wound, superficial, doing better. 5. Diabetes mellitus type 2. Pattern sugars appear to be improved and under control. Continue physical therapy. Hopefully, he can go home on Saturday. 6. Review of his orders, I do not see any change. cc: Chago Donohue MD
[2019-02-14] MEDS: ELAVIL PO SCH (21:08)
[2019-02-15] MEDS: SOLU-MEDROL IV SCH ×3 (04:33→21:27)
[2019-02-15] MEDS: HUMULIN R SUBQ SCH ×4 (06:03→21:29)
[2019-02-15] MEDS: ZYLOPRIM PO SCH ×2 (10:25→21:28)
[2019-02-15] MEDS: LYRICA PO SCH ×3 (10:26→23:21)
[2019-02-15] MEDS: PRAVACHOL PO SCH (10:26)
[2019-02-15] MEDS: NORCO-10 PO SCH ×3 (10:27→21:42)
[2019-02-15] MEDS: COLCRYS PO SCH ×2 (10:28→21:28)
--- NOTE | 2019-02-15 13:39 | PROGRESS NOTE ---
DATE: 02/15/2019 SUBJECTIVE: He feels better. His knees are better. His right wrist is better. He is very encouraged and is hoping he gets to go home in the morning. OBJECTIVE: Vital Signs: He remains afebrile, temperature 98.3 degrees, pulse 77, respirations 16, blood pressure 158/71. HEENT: Pupils are equal and round. Lungs: Clear in all lung zheng anterior and posterior. Cardiovascular: Regular rhythm and rate without murmur or S3. Abdomen: Soft. Skin: Warm and dry. Urine output was over 600 mL. He has been walking. ASSESSMENT AND PLAN: 1. Acute gouty arthritis and leukocytosis, I think secondary to steroids. Doing much better with Solu-Medrol and colchicine. His tenosynovitis in his right wrist and both knees is markedly improved. 2. Bilateral knee pain from gouty arthritis, improved. 3. Hypertension. Blood pressure under good control. 4. Right ankle wound, superficial, is healing. 5. Diabetes mellitus type 2. Sugar is under good control. Continue present regimen. Hope to send him home tomorrow with home health. cc: Chago Donohue MD
[2019-02-15] MEDS: SANTYL OINT TOP SCH (16:27)
[2019-02-15] MEDS: ELAVIL PO SCH (21:28)
[2019-02-16] MEDS: HUMULIN R SUBQ SCH ×3 (06:13→16:08)
[2019-02-16] MEDS: COLCRYS PO SCH (10:34)
[2019-02-16] MEDS: PRAVACHOL PO SCH (10:34)
[2019-02-16] MEDS: LYRICA PO SCH ×2 (10:35→16:09)
[2019-02-16] MEDS: SANTYL OINT TOP SCH (10:35)
[2019-02-16] MEDS: ZYLOPRIM PO SCH (10:35)
[2019-02-16] MEDS: NORCO-10 PO SCH ×2 (10:35→16:09)
[2019-02-16] MEDS: SOLU-MEDROL IV SCH ×2 (10:38→16:08)
--- NOTE | 2019-02-16 16:30 | DISCHARGE SUMMARY ---
ADMISSION DATE: 02/10/2019 DISCHARGE DATE: 02/16/2019 HISTORY: He is a patient of Dr. Isaias Godfrey. He is a 58-year-old with a history of hypertension, diabetes mellitus type 2, hyperlipidemia, and gout, presented to the emergency room with abnormal labs. Apparently, he went to his primary care, Dr. Godfrey, and they duong labs and noticed that his white blood cell count was elevated. Denied any kind of symptoms. The patient arrived to the emergency room somewhat hypotensive, given some IV fluids and his blood pressure improved. Due to his presenting symptoms, thought we would place him in for observation for evaluation and management. At the time of examination, he denied headache, fever, chills, chest pain, shortness of breath, hemoptysis. PAST MEDICAL HISTORY: 1. Gout, severe gouty arthritis. 2. Hypertension. 3. Diabetes mellitus type 2. 4. Hyperlipidemia. PAST SURGICAL HISTORY: Hernia repair. HOSPITAL COURSE: He had bilateral knee inflammation and pain secondary to gout. He developed some irritation and tenosynovitis in the right wrist as well. Leukocytosis we felt was from steroids; did not find an active infection. He had a right ankle superficial wound that seemed to be healing well and continued topical care. We watched his blood sugars while he was here. Actually felt like he would benefit from colchicine and Solu-Medrol and he did. He showed marked improvement, was able to ambulate and get around. He was eating well. Initially he was not able to walk because of the pain of his arthritis. DISCHARGE MEDICATIONS: Zyloprim 100 mg b.i.d., Elavil 75 mg at bedtime. I am going to give him colchicine probenecid combination 0.6 mg b.i.d. I will give him 2 weeks of his [place] until he can get back to his primary care; he takes 10 mg 3 times a day. I will give him a Medrol Dosepak to go home. He was on Solu-Medrol 60 mg q.8 and Pravachol 40 mg a day, Lyrica 75 mg a day. cc: Chago Donohue MD
[2019-02-16 17:03] VITALS: BP 168/92
== END 2019-02-16 17:30 | disposition home health service (06) | DRG 816 ==
LOC: 3N 16:51 → ED 16:51 → SUATTDRO 02-10 02:22 → OBSVTOIN 02-10 02:22
PROVIDERS: ATTEND Emergency Medicine
CPT/HCPCS: 71020; 71046; 80048; 80053; 81001; 82948; 83605; 83735; 84550; 85025; 87040; 87088; 93005; 96361; 96365; 96368; 97110; 97116; 97162; 97165; 97530; 99285; A9270; J2543; J2930; J3370; J7030; J7040; XXXXX